=== PATIENT | male | born 1955 | race Caucasian/White ===

== ENCOUNTER 2017-07-02 02:05 | Emergency (ER) | payer BC ==
[2017-07-02] MEDS ORDERED: Sodium Chloride 0.9% 1,000 ML ONE ×2 (02:50→04:36)
--- NOTE | 2017-07-02 05:53 | EDM.PDOC ---
ED HPI GENERAL MEDICAL PROBLEM - General Stated Complaint: ANAL BLEED Time Seen by Provider: 07/02/17 05:48 Source of Information: Reports: Patient, Family (Son) History Limitations: Reports: No Limitations - History of Present Illness INITIAL COMMENTS - FREE TEXT/NARRATIVE: The patient was seen during [facility] downtime. [facility]. The time stamps on the chart affect the current time, not the times that the patient was seen or discharged. The patient states that he underwent a colonoscopy per Dr. Jeremias Marquez, diesel truck mechanic at [facility], yesterday, 07/01/17. Dr. Marquez apparently found a large polyp and took multiple biopsies. Patient was discharged home, feeling well. He states that he developed a painless rectal bleed around 23:00, and has since had about 13 bloody bowel movements. He has become dizzy. His vital signs were initially stable upon arrival to the ED, but shortly after arrival, his blood pressure dropped to 91/51, and he was unable to stand due to dizziness. No prior similar symptoms. No recent illnesses. The patient is not on an anticoagulant. - Related Data Allergies Allergy/AdvReac Type Severity Reaction Status Date / Time No Known Allergies Allergy Verified 01/17/15 10:48 Home Meds: Home Meds Furosemide 40 mg PO DAILY 01/17/15 [History] Hydrochlorothiazide 25 mg PO DAILY 01/17/15 [History] Losartan Potassium 100 mg PO DAILY 01/17/15 [History] Metoprolol Succinate [Toprol XL] 100 mg PO DAILY 01/17/15 [History] Omeprazole 20 mg PO DAILY 01/17/15 [History] Potassium Chloride [Klor-Con M20] 20 meq PO DAILY 01/17/15 [History] Tamsulosin HCl 0.4 mg PO DAILY 01/17/15 [History] metFORMIN [Glucophage] 500 mg PO BID 01/17/15 [History] Past Medical History Cardiovascular History: Reports: Hypertension Gastrointestinal History: Reports: Colon Polyp, GERD, PUD, Other (See Below) ( Duodenal tumor, benign, excised) Endocrine/Metabolic History: Reports: Obesity/BMI 30+, Other (See Below) ( Prediabetes) - Past Surgical History GI Surgical History: Reports: Appendectomy, Other (See Below) (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 ED EXAM, GI/ABD - Physical Exam Exam: See Below Exam Limited By: No Limitations General Appearance: Alert, WD/WN, Mild Distress Eyes: Bilateral: Normal Appearance, EOMI Ears: Normal External Exam, Hearing Grossly Normal Nose: Normal Inspection, No Blood Throat/Mouth: Normal Inspection, Normal Lips, Normal Voice, No Airway Compromise Head: Atraumatic, Normocephalic Neck: Normal Inspection, Full Range of Motion Respiratory/Chest: No Respiratory Distress, Lungs Clear, Normal Breath Sounds, No Accessory Muscle Use Cardiovascular: Normal Peripheral Pulses, Regular Rate, Rhythm, No Gallop, No JVD, No Murmur, No Rub GI/Abdominal Exam: Normal Bowel Sounds, Soft, No Organomegaly, No Distention, No Abnormal Bruit, No Mass, Pelvis Stable, Tender (Mild, in the epigastric region. Nontender elsewhere.), Other (Obese) (Male) Exam: Deferred Rectal (Males) Exam: Heme + Stool Back Exam: Normal Inspection, Full Range of Motion, NT Extremities: Normal Inspection, Normal Range of Motion, No Pedal Edema, Normal Capillary Refill Neurological: Alert, Oriented, Normal Cognition, No Motor/Sensory Deficits Psychiatric: Normal Affect Skin Exam: Warm, Intact, Normal Color, No Rash, Diaphoretic Course - Orders/Labs/Meds Orders: Active Orders 24 hr Category Date Time Status Abdomen 1V Upright [CR] Stat Exams 07/02/17 03:00 Taken - Re-Assessments/Exams Free Text/Narrative Re-Assessment/Exam: 07/02/17 05:55 The patient was given 1 L normal saline bolus, and 2 units of packed red blood cells were ordered typed and crossed. Case discussed with Dr. Velez at 03:20. He felt that the patient would need a colonoscopy, not surgery. He recommended transfer back to Dr. Marquez. [facility] was contacted at 03:25. Case discussed with Dr. Marquez, the patient's Pail Tester, at 03:29. He explained that the patient had an extremely redundant colon, and that he was only able to remove about one half of the cecal polyp. He stated that there was no bleeding at the time, and that the patient was referred to a surgeon for a right hemicolectomy. At this time, the patient would need either interventional radiology for embolization versus surgery, and, since the patient needs a hemicolectomy anyway, he believes that that is the correct choice at this time. Case then discussed with Dr. Aguilar, Surgeon at [facility], at 03:37. He recommended that the patient be transferred to their ED, and that he could see the patient there. We were subsequently notified that due to heavy fog, the helicopter was not flying, and that no fixed wings were available. The patient would have to be transferred by ground. Shortly before transfer, a fixed wing did become available, however, they have a limit of 350 pounds, and the patient weighs 380 pounds, therefore he would have to go by ground. Both units of PRBC's went with the ambulance crew, to be given to the patient en route. Departure - Departure Time of Disposition: 03:40 Disposition: DC/Tfer to Acute Hospital 02 Condition: Fair Clinical Impression: Acute lower GI bleeding, Hypotension due to blood loss - Discharge Information Referrals: PCP,Unknown [Primary Care Provider] - - My Orders Last 24 Hours: My Active Orders 07/02/17 03:00 Abdomen 1V Upright [CR] Stat - Assessment/Plan Last 24 Hours: My Active Orders 07/02/17 03:00 Abdomen 1V Upright [CR] Stat
--- NOTE | 2017-07-02 09:30 | CR ---
Abdomen: Upright views of the abdomen were obtained. Comparison: No prior abdominal x-ray, previous CT abdomen and pelvis exam of 07/06/09. Scoliosis and degenerative change is noted within the spine. Bowel gas pattern appears normal. Calcifications are seen within the pelvis compatible with phleboliths. No free air is seen. Impression: 1. Incidental findings. No free air is seen. Diagnostic code #2
== END 2017-07-02 05:48 ==
LOC: JD.ED 02:05
DX: K92.2 Gastrointestinal hemorrhage, unspecified (principal); I95.89 Other hypotension; I10 Essential (primary) hypertension; K21.9 Gastro-esophageal reflux disease without esophagitis; E66.9 Obesity, unspecified; Z87.891 Personal history of nicotine dependence; Z79.899 Other long term (current) drug therapy
CPT/HCPCS: 36415; 36430; 74018; 80053; 82270; 85025; 85610; 85730; 86850; 86900; 86901; 86922; 96360; 96361; 99285; J7040; P9016

== ENCOUNTER 2019-04-14 15:23 | Inpatient (IN) | payer MEDICARE, OTHER ==
[2019-04-14] MEDS ORDERED: Sodium Chloride 0.9% 10 ML Syringe FLUSH PRN (15:38)
--- NOTE | 2019-04-14 16:07 | EDM.PDOC ---
ED HPI GENERAL MEDICAL PROBLEM - General Chief Complaint: Respiratory Problem Stated Complaint: SOB Time Seen by Provider: 04/14/19 15:30 Source of Information: Reports: Patient, RN Notes Reviewed - History of Present Illness INITIAL COMMENTS - FREE TEXT/NARRATIVE: 64 year old male has been transfered here from the [facility] for evaluation of difficulty breathing, hypoxia, large weight gain. He does have hx of chronic obesity, hypertension. He states his difficulty with shortness of breath first started about 6 weeks ago and has progressively been getting worse. He did smoke up until about 15 years ago. He is thought to have at least mild COPD but that has never been definitively diagnosed. He has had no recent cough fever or chills. He does get more short of breath with even minimal walking or exertion. He was sent to the [place] ED about a week ago. At that time he had full cardiopulmonary workup including CT pulmonary angiogram which did rule out PE. With nebulized treatments and steroids he did better for 4-5 days now over the last 2-3 days symptoms have gotten much worse. He presented to the [facility] with O2 sats at about 85% room air at rest. Without further workup she is transferred here for further evaluation and treatment. On arrival to ED he has no chest pain. He was transferred here with oxygen and an oxygen tank per private vehicle and did okay with the transfer. Her walking from the car out in the parking lot here into the ED his sats dropped to "67% on arrival to his room ". He also states he has had a 20 pound weight gain in the past week and about 50 pound weight gain in the past 3 months or so. He feels like a lot of that'll weight has gone to his abdomen. He states his abdomen is much more distended than it has been in the past. He states he weighed about 350 pounds several months ago last summer. He states he weighed about 380 pounds a week ago and now weighs "over 400 pounds". - Related Data Allergies Allergy/AdvReac Type Severity Reaction Status Date / Time No Known Allergies Allergy Verified 01/17/15 10:48 Home Meds: Home Meds Furosemide 20 mg PO DAILY 01/17/15 [History] Metoprolol Succinate [Toprol XL] 100 mg PO BID 01/17/15 [History] Omeprazole 20 mg PO DAILY 01/17/15 [History] Tamsulosin HCl 0.4 mg PO DAILY 01/17/15 [History] Albuterol [Ventolin HFA] 2 puff INH Q6H 04/14/19 [History] Aspirin [Mariusz Chewable] 81 mg PO DAILY 04/14/19 [History] Escitalopram [Lexapro] 10 mg PO DAILY 04/14/19 [History] Past Medical History Cardiovascular History: Reports: Afib, High Cholesterol, Hypertension Respiratory History: Reports: Bronchitis, Recurrent, COPD, Pneumonia, Recurrent , Sleep Apnea, SOB Gastrointestinal History: Reports: Colon Polyp, GERD, PUD, Other (See Below) Endocrine/Metabolic History: Reports: Obesity/BMI 30+, Other (See Below) Other Dermatologic History: dark spots on legs - Past Surgical History GI Surgical History: Reports: Appendectomy, Colostomy, Other (See Below) Other GI Surgeries/Procedures: colostomy with reversal Social & Family History - Tobacco Use Smoking Status *Q: Former Smoker Used Tobacco, but Quit: Yes Month/Year Tobacco Last Used: 2003 - Caffeine Use Caffeine Use: Reports: Coffee - Recreational Drug Use Recreational Drug Use: No - Living Situation & Occupation Living situation: Reports: , Alone Occupation: Unemployed ED ROS GENERAL - Review of Systems Review Of Systems: See Below Constitutional: Denies: Fever, Chills, Diaphoresis HEENT: Denies: Throat Pain Respiratory: Reports: Shortness of Breath. Denies: Pleuritic Chest Pain, Cough Cardiovascular: Denies: Chest Pain GI/Abdominal: Reports: Distension. Denies: Abdominal Pain, Decreased Appetite, Nausea, Vomiting Musculoskeletal: Denies: Shoulder Pain, Arm Pain, Back Pain Skin: Reports: No Symptoms Neurological: Reports: Dizziness. Denies: Trouble Speaking, Difficulty Walking (No difficulty walking other than getting more short of breath with walking and exertion) ED EXAM, GENERAL - Physical Exam Exam: See Below General Appearance: Alert Eye Exam: Bilateral Eye: PERRL Throat/Mouth: Normal Inspection, Normal Oropharynx Head: Atraumatic, Facial Swelling (Mild) Neck: Supple, Other (No JVD) Respiratory/Chest: Respiratory Distress (Moderate tachypnea) Cardiovascular: Regular Rate, Rhythm GI/Abdominal: Soft, Distended (Very distended), Tender (Very mild diffuse tenderness). No: Guarding Back Exam: No: CVA Tenderness (L), CVA Tenderness (R) Extremities: Pedal Edema (Mild bilateral), Other (Stasis dermatitis skin changes bilateral distal legs, ankles and feet). No: Leg Pain, Redness Neurological: Alert, Oriented, No Motor/Sensory Deficits Skin Exam: Warm, Dry EKG INTERPRETATION EKG Date: 04/14/19 Rhythm: NSR [place]: Normal P-Wave: Present QRS: Normal ST-T: Normal QT: Normal Course - Vital Signs Last Recorded V/S: Last Vital Signs Temp 97.7 F 04/14/19 15:28 Pulse 73 04/14/19 15:28 Resp 25 H 04/14/19 15:28 BP 167/100 H 04/14/19 15:28 Pulse Ox 96 04/14/19 15:39 - Orders/Labs/Meds Orders: Active Orders 24 hr Category Date Time Status EKG 12 Lead [EKG Documentation Completion] [RC] STAT Care 04/14/19 15:39 Active Oxygen Therapy [RC] ASDIRECTED Care 04/14/19 15:39 Active Peripheral IV Care [RC] . DIRECTED Care 04/14/19 15:39 Active Chest 1V Frontal [CR] Stat Exams 04/14/19 15:39 Taken Sodium Chloride 0.9% [Saline Flush] Med 04/14/19 15:38 Active 10 ml FLUSH ASDIRECTED PRN Peripheral IV Insertion Adult [OM.PC] Stat Oth 04/14/19 15:39 Ordered Medication Orders Sodium Chloride (Saline Flush) 10 ml FLUSH ASDIRECTED PRN PRN Reason: Keep Vein Open Last Admin: 04/14/19 15:42 Dose: 10 ml Labs: Laboratory Tests 04/14/19 04/14/19 04/14/19 Range/Units 15:35 15:35 15:35 WBC 9.53 H (4.23-9.07) K/mm3 RBC 5.40 (4.63-6.08) M/mm3 Hgb 16.1 (13.7-17.5) gm/dl Hct 52.5 H (40.1-51.0) % MCV 97.2 H D (79.0-92.2) fl MCH 29.8 (25.7-32.2) pg MCHC 30.7 L (32.2-35.5) g/dl RDW Std Deviation 54.8 H (35.1-43.9) fL Plt Count 194 (163-337) K/mm3 MPV 10.0 (9.4-12.3) fl Neut % (Auto) 67.8 (34.0-67.9) % Lymph % (Auto) 18.3 L (21.8-53.1) % [place] % (Auto) 13.0 H (5.3-12.2) % Eos % (Auto) 0.6 L (0.8-7.0) Baso % (Auto) 0.1 (0.1-1.2) % Neut # (Auto) 6.46 H (1.78-5.38) K/mm3 Lymph # (Auto) 1.74 (1.32-3.57) K/mm3 [place] # (Auto) 1.24 H (0.30-0.82) K/mm3 Eos # (Auto) 0.06 (0.04-0.54) K/mm3 Baso # (Auto) 0.01 (0.01-0.08) K/mm3 PT (9.7-12.0) SECONDS INR Sodium 145 (136-145) mEq/L Potassium 4.4 (3.5-5.1) mEq/L Chloride 107 (98-107) mEq/L Carbon Dioxide 35 H (21-32) mEq/L Anion Gap 7.4 (5-15) BUN 35 H (7-18) mg/dL Creatinine 1.6 H (0.7-1.3) mg/dL Est Cr Clr Drug Dosing 50.52 mL/min Estimated GFR (MDRD) 44 (>60) mL/min BUN/Creatinine Ratio 21.9 H (14-18) Glucose 95 (80-115) mg/dL Calcium 9.1 (8.5-10.1) mg/dL Total Bilirubin 0.7 (0.2-1.0) mg/dL AST 26 (15-37) U/L ALT 58 (16-63) U/L Alkaline Phosphatase 67 (46-116) U/L Troponin I 0.046 (0.00-0.056) ng/mL NT-Pro-B Natriuret Pep 1389 H (0-125) pg/mL Total Protein 7.1 (6.4-8.2) g/dl Albumin 3.5 (3.4-5.0) g/dl Globulin 3.6 gm/dL Albumin/Globulin Ratio 1.0 (1-2) 04/14/19 Range/Units 15:35 WBC (4.23-9.07) K/mm3 RBC (4.63-6.08) M/mm3 Hgb (13.7-17.5) gm/dl Hct (40.1-51.0) % MCV (79.0-92.2) fl MCH (25.7-32.2) pg MCHC (32.2-35.5) g/dl RDW Std Deviation (35.1-43.9) fL Plt Count (163-337) K/mm3 MPV (9.4-12.3) fl Neut % (Auto) (34.0-67.9) % Lymph % (Auto) (21.8-53.1) % [place] % (Auto) (5.3-12.2) % Eos % (Auto) (0.8-7.0) Baso % (Auto) (0.1-1.2) % Neut # (Auto) (1.78-5.38) K/mm3 Lymph # (Auto) (1.32-3.57) K/mm3 [place] # (Auto) (0.30-0.82) K/mm3 Eos # (Auto) (0.04-0.54) K/mm3 Baso # (Auto) (0.01-0.08) K/mm3 PT 11.7 D (9.7-12.0) SECONDS INR 1.08 Sodium (136-145) mEq/L Potassium (3.5-5.1) mEq/L Chloride (98-107) mEq/L Carbon Dioxide (21-32) mEq/L Anion Gap (5-15) BUN (7-18) mg/dL Creatinine (0.7-1.3) mg/dL Est Cr Clr Drug Dosing mL/min Estimated GFR (MDRD) (>60) mL/min BUN/Creatinine Ratio (14-18) Glucose (80-115) mg/dL Calcium (8.5-10.1) mg/dL Total Bilirubin (0.2-1.0) mg/dL AST (15-37) U/L ALT (16-63) U/L Alkaline Phosphatase (46-116) U/L Troponin I (0.00-0.056) ng/mL NT-Pro-B Natriuret Pep (0-125) pg/mL Total Protein (6.4-8.2) g/dl Albumin (3.4-5.0) g/dl Globulin gm/dL Albumin/Globulin Ratio (1-2) Meds: Medications Generic Name Dose Route Start Last Admin Trade Name Freq PRN Reason Stop Dose Admin Sodium Chloride 10 ml 04/14/19 15:38 04/14/19 15:42 Saline Flush FLUSH 10 ml ASDIRECTED PRN Administration Keep Vein Open Discontinued Medications Generic Name Dose Route Start Last Admin Trade Name Freq PRN Reason Stop Dose Admin Furosemide 60 mg 04/14/19 16:28 04/14/19 16:40 Lasix IVPUSH 04/14/19 16:29 60 mg NOW ONE Administration - Re-Assessments/Exams Free Text/Narrative Re-Assessment/Exam: 04/14/19 17:03 Chest x-ray shows cardiomegaly, pulmonary congestion, BNP came back at around 1400. As noted O2 sats dropped to 67% just walking from the parking lot to his room here in the ED. Sats did come up immediately with oxygen nasal cannula. Currently running in the mid 90s at 4 L nasal cannula we will try drop that down to 3 or 2. No semi-60 mg IV has been given. Will be admitted for further evaluation and treatment. Note he did just have an echocardiogram done at [facility] yesterday, results not yet available. Departure - Departure Time of Disposition: 17:05 Disposition: Home, Self-Care 01 Condition: Poor Clinical Impression: Renal insufficiency Congestive heart failure Qualifiers: Heart failure chronicity: acute on chronic Obesity Qualifiers: Obesity type: unspecified obesity type Serious obesity comorbidity presence: with serious comorbidity Body mass index: BMI 50.0-59.9 - Discharge Information Referrals: Sofia Otto PA-C [Primary Care Provider] - Forms: ED Department Discharge ED Communication - Discussed Case With (1) Discussed Case With (1): Admitting Provider (Dr Schrader, decision to admit at about 16:45) - My Orders Last 24 Hours: My Active Orders 04/14/19 15:38 Sodium Chloride 0.9% [Saline Flush] 10 ml FLUSH ASDIRECTED PRN 04/14/19 15:39 EKG 12 Lead [EKG Documentation Completion] [RC] STAT Oxygen Therapy [RC] ASDIRECTED Peripheral IV Care [RC] . DIRECTED Chest 1V Frontal [CR] Stat Peripheral IV Insertion Adult [OM.PC] Stat - Assessment/Plan Last 24 Hours: My Active Orders 04/14/19 15:38 Sodium Chloride 0.9% [Saline Flush] 10 ml FLUSH ASDIRECTED PRN 04/14/19 15:39 EKG 12 Lead [EKG Documentation Completion] [RC] STAT Oxygen Therapy [RC] ASDIRECTED Peripheral IV Care [RC] . DIRECTED Chest 1V Frontal [CR] Stat Peripheral IV Insertion Adult [OM.PC] Stat
[2019-04-14] MEDS ORDERED: Furosemide 40 MG/4 ML VIAL IVPUSH ONE (16:28)
--- NOTE | 2019-04-14 20:30 | CR ---
Chest: Frontal view of the chest was obtained. Comparison: Previous chest x-ray of 03/02/19. Heart size is stable. Questionable increased markings are noted within the left mid lung. Lungs otherwise are clear. Bony structures are unremarkable. Impression: 1. Left-sided increased lung markings. These appear fairly stable from previous exam. 2. Nothing acute is otherwise seen. Diagnostic code #2
--- NOTE | 2019-04-14 21:25 | PCM.HP.2 ---
H&P History of Present Illness - General Date of Service: 04/14/19 Admit Problem/Dx: Admission Diagnosis/Problem Admission Diagnosis/Problem CHF, Congestive heart failure - History of Present Illness Initial Comments - Free Text/Narative: 54-year-old male who presented from [facility] with increasing shortness of breath and hypoxia. Patient states over the last 6 weeks he has had worsening shortness of breath. Patient presented to [facility] at that time and was started on nebulizers. Patient had some mild improvement but then was sent to [facility] emergency room on and they did relatively full evaluation which included a CT pulmonary angiogram to rule out PE. An echocardiogram was performed yesterday. Patient denies any orthopnea but does have PND. Today patient was at a follow-up appointment and his provider referred him to the emergency room because of worsening shortness of breath and weight gain. Patient states he has gained approximately 20 pounds over the last 6 weeks. He feels like it is mostly gone into his abdomen, but his provider felt there was increased swelling in his legs. Patient stopped smoking 15 years ago. He appears to have mild COPD. He's had no cough, chills, or fever. Patient has only a few step dyspnea on exertion. When the patient arrived to the emergency room his oxygen saturations were 67% after walking to his room. In the emergency room his initial blood pressure was 167 or 100 with respiratory rate of 25. EKG showed normal sinus rhythm with essentially normal EKG. It is not available for me to see at this time. Chest x-ray showed cardiomegaly with pulmonary vascular congestion. Patient was then given Lasix 60 mg IV with good results. He currently states he has much less shortness of breath. Emergency room laboratory studies: WBC 9.53, hemoglobin 16.1, platelets 194, sodium 145, chloride 107, potassium 4.4, carbon dioxide 35, BUN 35, creatinine 1.6, proBNP 1389, troponin 0.047. - Related Data Allergies/Adverse Reactions: Allergies Allergy/AdvReac Type Severity Reaction Status Date / Time No Known Allergies Allergy Verified 04/14/19 20:51 Home Medications: Home Meds Furosemide 20 mg PO DAILY 01/17/15 [History] Omeprazole 20 mg PO DAILY 01/17/15 [History] Tamsulosin HCl 0.4 mg PO DAILY 01/17/15 [History] Aspirin [Mariusz Chewable] 81 mg PO DAILY 04/14/19 [History] Escitalopram [Lexapro] 10 mg PO DAILY 04/14/19 [History] Past Medical History HEENT History: Reports: Other (See Below) Other HEENT History: wears glasses, has upper dentures Cardiovascular History: Reports: High Cholesterol, Hypertension Respiratory History: Reports: COPD, Sleep Apnea, Other (See Below) Other Respiratory History: wears CPAP Gastrointestinal History: Reports: Colon Polyp, GERD Endocrine/Metabolic History: Reports: Obesity/BMI 30+ Other Dermatologic History: dark spots on legs - Past Surgical History HEENT Surgical History: Reports: Tonsillectomy Cardiovascular Surgical History: Reports: None Respiratory Surgical History: Reports: None GI Surgical History: Reports: Appendectomy, Colonoscopy, Colostomy, Other (See Below) Other GI Surgeries/Procedures: colonoscopy in 2018 where bowel was perforated, ended up with colostomy which has since been reversed. Endocrine Surgical History: Reports: None Social & Family History - Family History Family Medical History: Noncontributory - Tobacco Use Smoking Status *Q: Former Smoker Years of Tobacco use: 30 Used Tobacco, but Quit: Yes Month/Year Tobacco Last Used: 2003 - Caffeine Use Caffeine Use: Reports: None - Alcohol Use Days Per Week of Alcohol Use: 7 Number of Drinks Per Day: 3 Total Drinks Per Week: 21 - Recreational Drug Use Recreational Drug Use: No - Living Situation & Occupation Living situation: Reports: , Alone Occupation: Unemployed H&P Review of Systems - Review of Systems: Review Of Systems: ROS reveals no pertinent complaints other than HPI. Exam - Exam Exam: See Below - Vital Signs Vital Signs: Last Vital Signs Temp 98.6 F 04/14/19 18:18 Pulse 75 04/14/19 18:24 Resp 22 H 04/14/19 18:18 BP 169/75 H 04/14/19 18:24 Pulse Ox 92 L 04/14/19 18:24 Weight: 398 lb 14.4 oz - Exam Quality Assessment: Supplemental Oxygen General: Alert, Oriented, 4 HEENT: Conjunctiva Clear, EACs Clear, EOMI, Hearing Intact, Mucosa Moist & Success , Nares Patent, Normal Nasal Septum, Posterior Pharynx Clear Neck: Supple, Trachea Midline, 2 Lungs: Normal Respiratory Effort, Rales (mild bibasilar) Cardiovascular: Regular Rate, Regular Rhythm GI/Abdominal Exam: Normal Bowel Sounds, Soft, Non-Tender, No Organomegaly, No Distention, No Abnormal Bruit, No Mass Extremities: Normal Inspection, Normal Range of Motion, Non-Tender, Normal Capillary Refill, Pedal Edema (2+) Skin: Warm, Dry, Intact, Other (Stasis dermatitis) Neurological: Cranial Nerves Intact Neuro Extensive - Mental Status: Alert, Oriented x3, Normal Mood/Affect, Normal Cognition Neuro Extensive - Motor, Sensory, Reflexes: CN II-XII Intact Psychiatric: Alert, Normal Affect, Normal Mood - Patient Data Lab Results Last 24 hrs: Laboratory Results - last 24 hr 04/14/19 04/14/19 04/14/19 Range/Units 15:35 15:35 15:35 WBC 9.53 H (4.23-9.07) K/mm3 RBC 5.40 (4.63-6.08) M/mm3 Hgb 16.1 (13.7-17.5) gm/dl Hct 52.5 H (40.1-51.0) % MCV 97.2 H D (79.0-92.2) fl MCH 29.8 (25.7-32.2) pg MCHC 30.7 L (32.2-35.5) g/dl RDW Std Deviation 54.8 H (35.1-43.9) fL Plt Count 194 (163-337) K/mm3 MPV 10.0 (9.4-12.3) fl Neut % (Auto) 67.8 (34.0-67.9) % Lymph % (Auto) 18.3 L (21.8-53.1) % [place] % (Auto) 13.0 H (5.3-12.2) % Eos % (Auto) 0.6 L (0.8-7.0) Baso % (Auto) 0.1 (0.1-1.2) % Neut # (Auto) 6.46 H (1.78-5.38) K/mm3 Lymph # (Auto) 1.74 (1.32-3.57) K/mm3 [place] # (Auto) 1.24 H (0.30-0.82) K/mm3 Eos # (Auto) 0.06 (0.04-0.54) K/mm3 Baso # (Auto) 0.01 (0.01-0.08) K/mm3 PT (9.7-12.0) SECONDS INR Sodium 145 (136-145) mEq/L Potassium 4.4 (3.5-5.1) mEq/L Chloride 107 (98-107) mEq/L Carbon Dioxide 35 H (21-32) mEq/L Anion Gap 7.4 (5-15) BUN 35 H (7-18) mg/dL Creatinine 1.6 H (0.7-1.3) mg/dL Est Cr Clr Drug Dosing 50.52 mL/min Estimated GFR (MDRD) 44 (>60) mL/min BUN/Creatinine Ratio 21.9 H (14-18) Glucose 95 (80-115) mg/dL Calcium 9.1 (8.5-10.1) mg/dL Total Bilirubin 0.7 (0.2-1.0) mg/dL AST 26 (15-37) U/L ALT 58 (16-63) U/L Alkaline Phosphatase 67 (46-116) U/L Troponin I 0.046 (0.00-0.056) ng/mL NT-Pro-B Natriuret Pep 1389 H (0-125) pg/mL Total Protein 7.1 (6.4-8.2) g/dl Albumin 3.5 (3.4-5.0) g/dl Globulin 3.6 gm/dL Albumin/Globulin Ratio 1.0 (1-2) 04/14/19 Range/Units 15:35 WBC (4.23-9.07) K/mm3 RBC (4.63-6.08) M/mm3 Hgb (13.7-17.5) gm/dl Hct (40.1-51.0) % MCV (79.0-92.2) fl MCH (25.7-32.2) pg MCHC (32.2-35.5) g/dl RDW Std Deviation (35.1-43.9) fL Plt Count (163-337) K/mm3 MPV (9.4-12.3) fl Neut % (Auto) (34.0-67.9) % Lymph % (Auto) (21.8-53.1) % [place] % (Auto) (5.3-12.2) % Eos % (Auto) (0.8-7.0) Baso % (Auto) (0.1-1.2) % Neut # (Auto) (1.78-5.38) K/mm3 Lymph # (Auto) (1.32-3.57) K/mm3 [place] # (Auto) (0.30-0.82) K/mm3 Eos # (Auto) (0.04-0.54) K/mm3 Baso # (Auto) (0.01-0.08) K/mm3 PT 11.7 D (9.7-12.0) SECONDS INR 1.08 Sodium (136-145) mEq/L Potassium (3.5-5.1) mEq/L Chloride (98-107) mEq/L Carbon Dioxide (21-32) mEq/L Anion Gap (5-15) BUN (7-18) mg/dL Creatinine (0.7-1.3) mg/dL Est Cr Clr Drug Dosing mL/min Estimated GFR (MDRD) (>60) mL/min BUN/Creatinine Ratio (14-18) Glucose (80-115) mg/dL Calcium (8.5-10.1) mg/dL Total Bilirubin (0.2-1.0) mg/dL AST (15-37) U/L ALT (16-63) U/L Alkaline Phosphatase (46-116) U/L Troponin I (0.00-0.056) ng/mL NT-Pro-B Natriuret Pep (0-125) pg/mL Total Protein (6.4-8.2) g/dl Albumin (3.4-5.0) g/dl Globulin gm/dL Albumin/Globulin Ratio (1-2) Result Diagrams: 04/14/19 15:35 04/14/19 15:35 Problem List Initiated/Reviewed/Updated: Yes Orders Last 24hrs: Active Orders 24 hr Category Date Time Status Patient Status [ADT] Routine ADT 04/14/19 17:15 Active CPAP Adult [RT BiPAP/CPAP] [RC] ASDIRECTED Care 04/14/19 20:06 Active Influenza Vaccine Charge [RC] .DISCHARGE Care 04/14/19 20:38 Active Intake and Output Strict [RC] 04,16 Care 04/14/19 18:32 Active Oxygen Therapy [RC] ASDIRECTED Care 04/14/19 15:39 Active Peripheral IV Care [RC] Q2HR Care 04/14/19 15:39 Active Heart Healthy Diet [DIET] Diet 04/15/19 Breakfast Active Echo Comp wo Cont [US] Routine Exams 04/15/19 Stop Req CBC WITH AUTO DIFF [HEME] AM Lab 04/15/19 05:11 Ordered CBC WITH AUTO DIFF [HEME] AM Lab 04/16/19 05:11 Ordered CBC WITH AUTO DIFF [HEME] AM Lab 04/17/19 05:11 Ordered CBC WITH AUTO DIFF [HEME] AM Lab 04/18/19 05:11 Ordered CMP [COMPREHENSIVE METABOLIC PN,CMP] [CHEM] AM Lab 04/15/19 05:11 Ordered CMP [COMPREHENSIVE METABOLIC PN,CMP] [CHEM] AM Lab 04/16/19 05:11 Ordered CMP [COMPREHENSIVE METABOLIC PN,CMP] [CHEM] AM Lab 04/17/19 05:11 Ordered CMP [COMPREHENSIVE METABOLIC PN,CMP] [CHEM] AM Lab 04/18/19 05:11 Ordered MAGNESIUM [CHEM] AM Lab 04/15/19 05:11 Ordered MAGNESIUM [CHEM] AM Lab 04/16/19 05:11 Ordered MAGNESIUM [CHEM] AM Lab 04/17/19 05:11 Ordered MAGNESIUM [CHEM] AM Lab 04/18/19 05:11 Ordered Aspirin Med 04/15/19 09:00 Ordered 81 mg PO DAILY Escitalopram Med 04/15/19 09:00 Ordered 10 mg PO DAILY Isosorbide Dinitrate [Isordil] Med 04/14/19 21:15 Once 10 mg PO ONETIME ONE Isosorbide Dinitrate [Isordil] Med 04/15/19 09:00 Ordered 10 mg PO TID Pantoprazole [ProTONIX] Med 04/15/19 06:00 Ordered 40 mg PO ACBREAKFAST Sodium Chloride 0.9% [Saline Flush] Med 04/14/19 15:38 Active 10 ml FLUSH ASDIRECTED PRN Tamsulosin [Flomax] Med 04/15/19 09:00 Ordered 0.4 mg PO DAILY hydrALAZINE [Apresoline] Med 04/14/19 21:15 Ordered 25 mg PO Q8H Peripheral IV Insertion Adult [OM.PC] Stat Oth 04/14/19 15:39 Ordered Code Status [Resuscitation Status] Routine Resus Stat 04/14/19 20:07 Ordered Medication Orders Aspirin (Halfprin) 81 mg PO DAILY [facility]A Citalopram Hydrobromide (Celexa) 20 mg PO DAILY [facility] Hydralazine HCl (Apresoline) 25 mg PO Q8H [facility] Isosorbide Dinitrate (Isordil) 10 mg PO TID JAYA Isosorbide Dinitrate (Isordil) 10 mg PO ONETIME ONE Stop: 04/14/19 21:16 Pantoprazole Sodium (Protonix) 40 mg PO ACBREAKFAST [facility] Sodium Chloride (Saline Flush) 10 ml FLUSH ASDIRECTED PRN PRN Reason: Keep Vein Open Last Admin: 04/14/19 15:42 Dose: 10 ml Tamsulosin HCl (Flomax) 0.4 mg PO DAILY [facility] Assessment/Plan Comment:: Assessment * New onset CHF * Likely secondary to chronic hypertension * Hypoxemia * On 6 L nasal cannula sPO2 approximately 95% * Chronic renal insufficiency * Old records Demonstrate estimated GFR of 51 in June and February of this year * Morbid obesity * BMI 52 * Hypertension * history of metoprolol tartrate 25 mg twice a day, but current med list does not have him taking it. * No current IZZY inhibitor or ARB * Sleep apnea * On CPAP at home, but not sure of pressure but thinks it's 10 * Stasis dermatitis * Confirms that he has chronic lower extremity edema * BPH * On tamsulosin Plan * Admit to medical floor on telemetry * FiO2 to keep SPO2 greater than 92% * Lasix 60 mg given in the emergency room repeat in the morning * Hydralazine 25 mg every 8 hours and isosorbide dinitrate 10 mg every 8 hours first dose tonight * We will not start an IZZY inhibitor or ARB secondary to renal insufficiency at this time but may benefit from it in the future * hold beta iliana * consider stress test as outpatient * Echocardiogram done at [place], [place]. We will request results * Monitor CBC, CMP, and magnesium * VTE prophylaxis with Lovenox. He will require 40 mg twice a day secondary to his morbid obesity * CODE STATUS: Full code * Length of stay 3-4 days - Mortality Measure Prognosis:: Poor
[2019-04-14] MEDS: hydrALAZINE 25 MG Tab PO SCH (21:38)
[2019-04-14] MEDS ORDERED: Isosorbide Dinitrate 10 MG Tab PO ONE (22:00)
[2019-04-15] MEDS ORDERED: Acetaminophen 325 MG/10.15 ML ML PO PRN (05:01)
[2019-04-15] MEDS ORDERED: Acetaminophen 325 MG Tab PO PRN (05:12)
[2019-04-15] MEDS: Pantoprazole 40 MG Tab.CR PO SCH (05:23)
[2019-04-15] MEDS: hydrALAZINE 25 MG Tab PO SCH (05:33)
[2019-04-15] MEDS ORDERED: Isosorbide Dinitrate 10 MG Tab PO SCH (06:00)
[2019-04-15] MEDS ORDERED: Furosemide 40 MG/4 ML VIAL IVPUSH SCH (08:00)
[2019-04-15] MEDS: Enoxaparin 40 MG/0.4 ML Syringe SUBCUT SCH ×2 (08:12→20:48)
[2019-04-15] MEDS: Tamsulosin 0.4 MG Cap.ER PO SCH (08:12)
[2019-04-15] MEDS: Aspirin 81 MG Tab.EC PO SCH (08:13)
[2019-04-15] MEDS: Citalopram 20 MG Tab PO SCH (08:13)
[2019-04-15] MEDS ORDERED: Calcium Carbonate 500 MG Tab.Chew PO PRN (10:28)
[2019-04-15] MEDS ORDERED: Spironolactone 25 MG Tab PO ONE (14:13)
[2019-04-15] MEDS ORDERED: Furosemide 40 MG/4 ML VIAL IVPUSH ONE (14:13)
--- NOTE | 2019-04-15 15:44 | US ---
Limited abdominal ultrasound: Multiple real-time images of the four quadrants of the abdomen were obtained. No ascites is seen. Impression: 1. No ascites. Diagnostic code #1
--- NOTE | 2019-04-15 17:34 | PCM.PN ---
- General Info Date of Service: 04/15/19 Admission Dx/Problem (Free Text): Admission Diagnosis/Problem Admission Diagnosis/Problem CHF, Congestive heart failure Subjective Update: Espinoza is feeling much better this morning. Breathing is easier and FiO2 is decreasing. Received his Echo from [facility] - Review of Systems General: Reports: No Symptoms HEENT: Reports: No Symptoms Pulmonary: Reports: Shortness of Breath Cardiovascular: Reports: No Symptoms Gastrointestinal: Reports: No Symptoms - Patient Data Vitals - Most Recent: Last Vital Signs Temp 98.4 F 04/15/19 11:41 Pulse 74 04/15/19 11:41 Resp 16 04/15/19 11:41 BP 125/64 04/15/19 11:41 Pulse Ox 93 L 04/15/19 11:41 Weight - Most Recent: 389 lb 14.4 oz I&O - Last 24 Hours: Intake & Output 04/15/19 04/15/19 04/15/19 06:59 14:59 22:59 Intake Total 1400 300 300 Output Total 4200 Balance -2800 300 300 Lab Results Last 24 Hours: Laboratory Results - last 24 hr 04/15/19 04/15/19 04/15/19 Range/Units 04:59 04:59 10:58 WBC 9.09 H (4.23-9.07) K/mm3 RBC 5.23 (4.63-6.08) M/mm3 Hgb 15.7 (13.7-17.5) gm/dl Hct 51.4 H (40.1-51.0) % MCV 98.3 H (79.0-92.2) fl MCH 30.0 (25.7-32.2) pg MCHC 30.5 L (32.2-35.5) g/dl RDW Std Deviation 55.6 H (35.1-43.9) fL Plt Count 166 (163-337) K/mm3 MPV 10.8 (9.4-12.3) fl Neut % (Auto) 65.3 (34.0-67.9) % Lymph % (Auto) 19.1 L (21.8-53.1) % [place] % (Auto) 13.8 H (5.3-12.2) % Eos % (Auto) 1.4 (0.8-7.0) Baso % (Auto) 0.3 (0.1-1.2) % Neut # (Auto) 5.93 H (1.78-5.38) K/mm3 Lymph # (Auto) 1.74 (1.32-3.57) K/mm3 [place] # (Auto) 1.25 H (0.30-0.82) K/mm3 Eos # (Auto) 0.13 (0.04-0.54) K/mm3 Baso # (Auto) 0.03 (0.01-0.08) K/mm3 Puncture Site Rt radial ABG pH 7.40 (7.35-7.45) ABG pCO2 59.1 H (35.0-45.0) mmHg ABG pO2 63.0 L (80.0-100.0) mmHg ABG HCO3 35.5 H (22.0-26.0) meq/L ABG O2 Saturation 89.2 L (96.0-97.0) % ABG Base Excess 8.1 H (-2-2.0) A-a Gradient 120 mmHg O2 Delivery Device Nasal cannula Oxygen Flow Rate 4.0 FiO2 36.00 (21.00-100.00) % Sodium 143 (136-145) mEq/L Potassium 4.2 (3.5-5.1) mEq/L Chloride 103 (98-107) mEq/L Carbon Dioxide 36 H (21-32) mEq/L Anion Gap 8.2 (5-15) BUN 32 H (7-18) mg/dL Creatinine 1.6 H (0.7-1.3) mg/dL Est Cr Clr Drug Dosing 52.02 mL/min Estimated GFR (MDRD) 44 (>60) mL/min BUN/Creatinine Ratio 20.0 H (14-18) Glucose 87 (80-115) mg/dL Calcium 9.2 (8.5-10.1) mg/dL Magnesium 2.2 (1.8-2.4) mg/dl Total Bilirubin 1.2 H (0.2-1.0) mg/dL AST 31 (15-37) U/L ALT 52 (16-63) U/L Alkaline Phosphatase 61 (46-116) U/L Total Protein 6.7 (6.4-8.2) g/dl Albumin 3.3 L (3.4-5.0) g/dl Globulin 3.4 gm/dL Albumin/Globulin Ratio 1.0 (1-2) Med Orders - Current: Current Medications Acetaminophen (Tylenol) 650 mg PO Q4H PRN PRN Reason: Pain/Fever Last Admin: 04/15/19 05:22 Dose: 650 mg Aspirin (Halfprin) 81 mg PO DAILY [facility] Last Admin: 04/15/19 08:13 Dose: 81 mg Calcium Carbonate/Glycine (Tums) 1,000 mg PO Q2H PRN PRN Reason: Indigestion Last Admin: 04/15/19 10:35 Dose: 1,000 mg Citalopram Hydrobromide (Celexa) 20 mg PO DAILY [facility] Last Admin: 04/15/19 08:13 Dose: 20 mg Enoxaparin Sodium (Lovenox) 40 mg SUBCUT BID [facility] Last Admin: 04/15/19 08:12 Dose: 40 mg Furosemide (Lasix) 40 mg IVPUSH DAILY [facility] Pantoprazole Sodium (Protonix) 40 mg PO ACBREAKFAST [facility] Last Admin: 04/15/19 05:23 Dose: 40 mg Sodium Chloride (Saline Flush) 10 ml FLUSH ASDIRECTED PRN PRN Reason: Keep Vein Open Last Admin: 04/14/19 15:42 Dose: 10 ml Spironolactone (Aldactone) 12.5 mg PO DAILY [facility] Tamsulosin HCl (Flomax) 0.4 mg PO DAILY [facility] Last Admin: 04/15/19 08:12 Dose: 0.4 mg Discontinued Medications Furosemide (Lasix) 60 mg IVPUSH NOW ONE Stop: 04/14/19 16:29 Last Admin: 04/14/19 16:40 Dose: 60 mg Furosemide (Lasix) 60 mg IVPUSH QAM [facility] Last Admin: 04/15/19 08:13 Dose: 60 mg Furosemide (Lasix) 40 mg IVPUSH NOW ONE Stop: 04/15/19 14:14 Last Admin: 04/15/19 14:34 Dose: 40 mg Hydralazine HCl (Apresoline) 25 mg PO Q8H [facility] Last Admin: 04/15/19 05:33 Dose: 25 mg Influenza Virus Vaccine (Pharmacy To Dose - Influenza Vaccine) 1 each IM ONETIME ONE Stop: 04/14/19 20:39 Influenza Virus Vaccine (Fluzone High-Dose Syringe) 180 mcg IM .ONCE ONE Stop: 04/14/19 21:01 Isosorbide Dinitrate (Isordil) 10 mg PO Q8H [facility] Last Admin: 04/15/19 05:32 Dose: 10 mg Isosorbide Dinitrate (Isordil) 10 mg PO ONETIME ONE Stop: 04/14/19 22:01 Last Admin: 04/14/19 21:38 Dose: 10 mg Spironolactone (Aldactone) 12.5 mg PO ONETIME ONE Stop: 04/15/19 14:14 Last Admin: 04/15/19 14:34 Dose: 12.5 mg - Exam Quality Assessment: Supplemental Oxygen General: Alert, Oriented HEENT: Pupils Equal Neck: Supple Lungs: Clear to Auscultation, Normal Respiratory Effort Cardiovascular: Regular Rate, Regular Rhythm GI/Abdominal Exam: Normal Bowel Sounds, Soft, Non-Tender, No Organomegaly, No Distention, No Abnormal Bruit, No Mass, Pelvis Stable - Problem List Review Problem List Initiated/Reviewed/Updated: Yes - My Orders Last 24 Hours: My Active Orders 04/14/19 18:32 Intake and Output Strict [RC] 04,16 04/14/19 20:06 CPAP Adult [RT BiPAP/CPAP] [RC] ASDIRECTED 04/14/19 20:07 Code Status [Resuscitation Status] Routine 04/14/19 20:38 Influenza Vaccine Charge [RC] .DISCHARGE 04/15/19 05:12 Acetaminophen [Tylenol] 650 mg PO Q4H PRN 04/15/19 06:00 Pantoprazole [ProTONIX] 40 mg PO ACBREAKFAST 04/15/19 07:50 Up ad Milena [RC] ASDIRECTED 04/15/19 08:00 Communication Order [RC] ROUTINE 04/15/19 09:00 Aspirin [Halfprin] 81 mg PO DAILY Citalopram [Celexa] 20 mg PO DAILY Enoxaparin [Lovenox] 40 mg SUBCUT BID Tamsulosin [Flomax] 0.4 mg PO DAILY 04/15/19 10:28 Calcium Carbonate [Tums] 1,000 mg PO Q2H PRN 04/15/19 Breakfast Fluid Restriction [DIET] Heart Healthy Diet [DIET] 04/16/19 05:11 CBC WITH AUTO DIFF [HEME] AM CMP [COMPREHENSIVE METABOLIC PN,CMP] [CHEM] AM MAGNESIUM [CHEM] AM 04/16/19 09:00 Furosemide [Lasix] 40 mg IVPUSH DAILY Spironolactone [Aldactone] 12.5 mg PO DAILY 04/17/19 05:11 CBC WITH AUTO DIFF [HEME] AM CMP [COMPREHENSIVE METABOLIC PN,CMP] [CHEM] AM MAGNESIUM [CHEM] AM 04/18/19 05:11 CBC WITH AUTO DIFF [HEME] AM CMP [COMPREHENSIVE METABOLIC PN,CMP] [CHEM] AM MAGNESIUM [CHEM] AM - Plan Plan:: Assessment * New onset CHF (HFpEF) * likely secondary to obesity, hypertension, and sleep-disordered breathing. * good urine output and 8 pound weight loss. * echocardiogram from 04/13/2019: technically suboptimal study. * left ventricle was not well visualized. * The left ventricular ejection fraction is 55-59%, with normal systolic function. This is an estimate. * Left ventricular disc diastolic filling is grade 2 diastolic dysfunction by spectral Doppler. * Aortic valve - no aortic valve stenosis by spectral Doppler. * There is an aortic aneurysm located in the ascending aorta kelvin * the IVC is normal in size with greater than 50% respirophasic collapse suggesting an RA pressure of 0-5 mmHg * ascending aortic aneurysm measuring 4.1 cm * appointment with cardiology to be scheduled * Hypoxemia * On 4 L nasal cannula sPO2 approximately 95% * Chronic renal insufficiency * Old records demonstrate estimated GFR of 51 in June and February of this year * Morbid obesity * BMI 52 * Hypertension * history of metoprolol tartrate 25 mg twice a day, but current med list does not have him taking it. * No current IZZY inhibitor or ARB * Sleep apnea * On CPAP at home, but not sure of pressure but thinks it's 10 * Stasis dermatitis * Confirms that he has chronic lower extremity edema * BPH * On tamsulosin Plan * Admit to medical floor on telemetry * FiO2 to keep SPO2 greater than 92% * Lasix 60 mg IV given this morning * Lasix 40 mg IV this afternoon * Stop Hydralazine 25 mg every 8 hours and isosorbide dinitrate 10 mg every 8 hours secondary to preserved ejection fraction her failure. * We will not start an IZZY inhibitor or ARB secondary to renal insufficiency at this time but may benefit from it in the future * start spironolactone 12.5 mg by mouth. * consider stress test as outpatient * Monitor CBC, CMP, and magnesium * VTE prophylaxis with Lovenox. He will require 40 mg twice a day secondary to his morbid obesity * CODE STATUS: Full code * Length of stay 3-4 days
[2019-04-15] MEDS ORDERED: Cyclobenzaprine 10 MG Tab PO PRN (18:22)
[2019-04-16] MEDS: Pantoprazole 40 MG Tab.CR PO SCH (06:31)
[2019-04-16] MEDS: Spironolactone 25 MG Tab PO SCH (09:20)
[2019-04-16] MEDS: Tamsulosin 0.4 MG Cap.ER PO SCH (09:20)
[2019-04-16] MEDS: Aspirin 81 MG Tab.EC PO SCH (09:20)
[2019-04-16] MEDS: Furosemide 40 MG/4 ML VIAL IVPUSH SCH (09:21)
[2019-04-16] MEDS: Citalopram 20 MG Tab PO SCH (09:21)
[2019-04-16] MEDS: Enoxaparin 40 MG/0.4 ML Syringe SUBCUT SCH ×2 (09:21→21:11)
[2019-04-16] MEDS: Albuterol/Ipratropium 3.0-0.5 MG/3 ML Neb Soln NEB SCH ×5 (10:56→23:59)
--- NOTE | 2019-04-16 12:37 | CR ---
Chest: Two views of the chest were obtained. Comparison: Prior chest x-ray of 04/14/19. Findings: Slight increased density is noted within the left mid and lower lung. Lower lung has an appearance of interval atelectasis. Left mid lung findings appear fairly stable. Right lung is clear. Heart size is normal. Upper mediastinum is within normal limits. Compression deformities are seen within the spine which are stable. Scattered disc space narrowing is noted within the spine which is stable. Impression: 1. Slight increased atelectasis within the left lung base. 2. Parenchymal density within the left mid lung which is stable. 3. Other findings which are believed to be incidental as described above. Diagnostic code #3
[2019-04-16] MEDS ORDERED: Furosemide 20 MG/2 ML VIAL IVPUSH ONE (15:00)
--- NOTE | 2019-04-16 18:04 | PCM.PN ---
- General Info Date of Service: 04/16/19 Admission Dx/Problem (Free Text): Admission Diagnosis/Problem Admission Diagnosis/Problem CHF, Congestive heart failure Subjective Update: patient states he is feeling well but still requires 5 L nasal cannula. He states that he is likely had low oxygenation for almost 2 years. 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 He thinks that several times in the clinic he has had low oxygenation. Review of his clinic notes shows that over the last few months his SPO2 has been in the low 90s documented a couple of times. he thinks he has had SPO2's in the 80s from 86-88%. - Patient Data Vitals - Most Recent: Last Vital Signs Temp 98.4 F 04/16/19 15:12 Pulse 92 04/16/19 15:12 Resp 24 H 04/16/19 15:41 BP 155/75 H 04/16/19 15:12 Pulse Ox 91 L 04/16/19 15:50 Weight - Most Recent: 375 lb 4.8 oz I&O - Last 24 Hours: Intake & Output 04/16/19 04/16/19 04/16/19 06:59 14:59 22:59 Intake Total 200 300 400 Output Total 1950 1200 Balance -1750 300 -800 Lab Results Last 24 Hours: Laboratory Results - last 24 hr 04/16/19 04/16/19 Range/Units 06:52 06:52 WBC 10.23 H (4.23-9.07) K/mm3 RBC 5.85 (4.63-6.08) M/mm3 Hgb 17.0 (13.7-17.5) gm/dl Hct 56.7 H (40.1-51.0) % MCV 96.9 H (79.0-92.2) fl MCH 29.1 (25.7-32.2) pg MCHC 30.0 L (32.2-35.5) g/dl RDW Std Deviation 54.0 H (35.1-43.9) fL Plt Count 180 (163-337) K/mm3 MPV 10.4 (9.4-12.3) fl Neut % (Auto) 69.1 H (34.0-67.9) % Lymph % (Auto) 14.6 L (21.8-53.1) % [place] % (Auto) 14.2 H (5.3-12.2) % Eos % (Auto) 1.7 (0.8-7.0) Baso % (Auto) 0.2 (0.1-1.2) % Neut # (Auto) 7.08 H (1.78-5.38) K/mm3 Lymph # (Auto) 1.49 (1.32-3.57) K/mm3 [place] # (Auto) 1.45 H (0.30-0.82) K/mm3 Eos # (Auto) 0.17 (0.04-0.54) K/mm3 Baso # (Auto) 0.02 (0.01-0.08) K/mm3 Sodium 142 (136-145) mEq/L Potassium 3.8 (3.5-5.1) mEq/L Chloride 97 L (98-107) mEq/L Carbon Dioxide 39 H (21-32) mEq/L Anion Gap 9.8 (5-15) BUN 30 H (7-18) mg/dL Creatinine 1.6 H (0.7-1.3) mg/dL Est Cr Clr Drug Dosing 52.02 mL/min Estimated GFR (MDRD) 44 (>60) mL/min BUN/Creatinine Ratio 18.8 H (14-18) Glucose 106 (80-115) mg/dL Calcium 9.4 (8.5-10.1) mg/dL Magnesium 2.3 (1.8-2.4) mg/dl Total Bilirubin 1.8 H (0.2-1.0) mg/dL AST 29 (15-37) U/L ALT 54 (16-63) U/L Alkaline Phosphatase 71 (46-116) U/L Total Protein 7.5 (6.4-8.2) g/dl Albumin 3.6 (3.4-5.0) g/dl Globulin 3.9 gm/dL Albumin/Globulin Ratio 0.9 L (1-2) Med Orders - Current: Current Medications Acetaminophen (Tylenol) 650 mg PO Q4H PRN PRN Reason: Pain/Fever Last Admin: 04/15/19 05:22 Dose: 650 mg Albuterol/Ipratropium (Duoneb 3.0-0.5 Mg/3 Ml) 3 ml NEB Q6HR JAYA Aspirin (Halfprin) 81 mg PO DAILY JAYA Last Admin: 04/16/19 09:20 Dose: 81 mg Calcium Carbonate/Glycine (Tums) 1,000 mg PO Q2H PRN PRN Reason: Indigestion Last Admin: 04/15/19 10:35 Dose: 1,000 mg Citalopram Hydrobromide (Celexa) 20 mg PO DAILY [facility] Last Admin: 04/16/19 09:21 Dose: 20 mg Cyclobenzaprine HCl (Flexeril) 10 mg PO TID PRN PRN Reason: Muscle Spasm Enoxaparin Sodium (Lovenox) 40 mg SUBCUT BID [facility] Last Admin: 04/16/19 09:21 Dose: 40 mg Furosemide (Lasix) 40 mg IVPUSH DAILY [facility] Last Admin: 04/16/19 09:21 Dose: 40 mg Pantoprazole Sodium (Protonix) 40 mg PO ACBREAKFAST [facility] Last Admin: 04/16/19 06:31 Dose: 40 mg Sodium Chloride (Saline Flush) 10 ml FLUSH ASDIRECTED PRN PRN Reason: Keep Vein Open Last Admin: 04/14/19 15:42 Dose: 10 ml Spironolactone (Aldactone) 12.5 mg PO DAILY [facility] Last Admin: 04/16/19 09:20 Dose: 12.5 mg Tamsulosin HCl (Flomax) 0.4 mg PO DAILY [facility] Last Admin: 04/16/19 09:20 Dose: 0.4 mg Discontinued Medications Albuterol/Ipratropium (Duoneb 3.0-0.5 Mg/3 Ml) 3 ml NEB Q4HRRT [facility] Stop: 04/16/19 18:01 Last Admin: 04/16/19 15:48 Dose: 3 ml Albuterol/Ipratropium (Duoneb 3.0-0.5 Mg/3 Ml) 3 ml NEB Q6HR [facility] Last Admin: 04/16/19 10:56 Dose: Not Given Furosemide (Lasix) 60 mg IVPUSH NOW ONE Stop: 04/14/19 16:29 Last Admin: 04/14/19 16:40 Dose: 60 mg Furosemide (Lasix) 60 mg IVPUSH QAM [facility] Last Admin: 04/15/19 08:13 Dose: 60 mg Furosemide (Lasix) 40 mg IVPUSH NOW ONE Stop: 04/15/19 14:14 Last Admin: 04/15/19 14:34 Dose: 40 mg Furosemide (Lasix) 20 mg IVPUSH ONETIME ONE Stop: 04/16/19 15:01 Last Admin: 04/16/19 15:36 Dose: 20 mg Hydralazine HCl (Apresoline) 25 mg PO Q8H [facility] Last Admin: 04/15/19 05:33 Dose: 25 mg Influenza Virus Vaccine (Pharmacy To Dose - Influenza Vaccine) 1 each IM ONETIME ONE Stop: 04/14/19 20:39 Influenza Virus Vaccine (Fluzone High-Dose Syringe) 180 mcg IM .ONCE ONE Stop: 04/14/19 21:01 Isosorbide Dinitrate (Isordil) 10 mg PO Q8H [facility] Last Admin: 04/15/19 05:32 Dose: 10 mg Isosorbide Dinitrate (Isordil) 10 mg PO ONETIME ONE Stop: 04/14/19 22:01 Last Admin: 04/14/19 21:38 Dose: 10 mg Spironolactone (Aldactone) 12.5 mg PO ONETIME ONE Stop: 04/15/19 14:14 Last Admin: 04/15/19 14:34 Dose: 12.5 mg - Exam Quality Assessment: Supplemental Oxygen General: Alert, Oriented HEENT: Pupils Equal, Pupils Reactive, EOMI, Mucous Membr. Moist/[place] Neck: Supple Lungs: Decreased Breath Sounds (likely secondary to body habitus), Wheezing ( faint wheeze bilateral lower midlung siegel). No: Normal Respiratory Effort ( slight increased respiratory effort) Cardiovascular: Regular Rate, Regular Rhythm GI/Abdominal Exam: Normal Bowel Sounds, Soft, Non-Tender Extremities: Pedal Edema Skin: Warm, Dry, Intact Neurological: No New Focal Deficit Psy/Mental Status: Alert, Normal Affect, Normal Mood - Problem List Review Problem List Initiated/Reviewed/Updated: Yes - My Orders Last 24 Hours: My Active Orders 04/15/19 18:22 Cyclobenzaprine [Flexeril] 10 mg PO TID PRN 04/16/19 09:00 Furosemide [Lasix] 40 mg IVPUSH DAILY Spironolactone [Aldactone] 12.5 mg PO DAILY 04/16/19 10:32 RT Aerosol Therapy [RC] ASDIRECTED 04/16/19 11:42 Chest Physiotherapy [RT Chest Physiotherapy] [RC] ASDIRECTED 04/16/19 17:36 RT Incentive Spirometry [RC] ASDIRECTED 04/17/19 00:00 Albuterol/Ipratropium [DuoNeb 3.0-0.5 MG/3 ML] 3 ml NEB Q6HR 04/17/19 05:11 CBC WITH AUTO DIFF [HEME] AM CMP [COMPREHENSIVE METABOLIC PN,CMP] [CHEM] AM MAGNESIUM [CHEM] AM 04/18/19 05:11 CBC WITH AUTO DIFF [HEME] AM CMP [COMPREHENSIVE METABOLIC PN,CMP] [CHEM] AM MAGNESIUM [CHEM] AM - Plan Plan:: Assessment * New onset CHF (HFpEF) * likely secondary to obesity, hypertension, and sleep-disordered breathing. * good urine output and 8 pound weight loss. * Increasing bicarb suggest contraction metabolic alkalosis 2/2 aggressive diuresis. * echocardiogram from 04/13/2019: technically suboptimal study. * left ventricle was not well visualized. * The left ventricular ejection fraction is 55-59%, with normal systolic function. This is an estimate. * Left ventricular disc diastolic filling is grade 2 diastolic dysfunction by spectral Doppler. * Aortic valve - no aortic valve stenosis by spectral Doppler. * There is an aortic aneurysm located in the ascending aorta kelvin * the IVC is normal in size with greater than 50% respirophasic collapse suggesting an RA pressure of 0-5 mmHg * ascending aortic aneurysm measuring 4.1 cm * appointment with cardiology to be scheduled * Hypoxemia * On 4 L nasal cannula sPO2 approximately 95% * He gives history of possible chronic hypoxemia, which is strengthened based on his compensated respiratory acidosis * Chronic renal insufficiency * Old records demonstrate estimated GFR of 51 in June and February of this year * Morbid obesity * BMI 52 * Hypertension * history of metoprolol tartrate 25 mg twice a day, but current med list does not have him taking it. * No current IZZY inhibitor or ARB * Sleep apnea * On CPAP at home, but not sure of pressure but thinks it's 10 * Stasis dermatitis * Confirms that he has chronic lower extremity edema * BPH * On tamsulosin Plan * Admit to medical floor on telemetry * FiO2 to keep SPO2 greater than 92% * Decrease rate of diuresis * Lasix 40 mg IV given this morning * Lasix 20 mg IV this afternoon * DuoNeb QID with EzPAP * Incentive spirometry. * We will not start an IZZY inhibitor or ARB secondary to renal insufficiency at this time but may benefit from it in the future * Spironolactone 12.5 mg by mouth. * consider stress test as outpatient * Monitor CBC, CMP, and magnesium * VTE prophylaxis with Lovenox. He will require 40 mg twice a day secondary to his morbid obesity * CODE STATUS: Full code * Length of stay 3-4 days
[2019-04-17] MEDS: Albuterol/Ipratropium 3.0-0.5 MG/3 ML Neb Soln NEB SCH ×3 (06:17→17:06)
[2019-04-17] MEDS: Pantoprazole 40 MG Tab.CR PO SCH (06:37)
[2019-04-17] MEDS ORDERED: Potassium Chloride 20 MEQ Tab.ER PO ONE (08:17)
[2019-04-17] MEDS: Enoxaparin 40 MG/0.4 ML Syringe SUBCUT SCH ×2 (08:43→20:10)
[2019-04-17] MEDS: Citalopram 20 MG Tab PO SCH (08:44)
[2019-04-17] MEDS: Furosemide 40 MG/4 ML VIAL IVPUSH SCH (08:44)
[2019-04-17] MEDS: Spironolactone 25 MG Tab PO SCH (08:44)
[2019-04-17] MEDS: Aspirin 81 MG Tab.EC PO SCH (08:44)
[2019-04-17] MEDS: Tamsulosin 0.4 MG Cap.ER PO SCH (08:44)
--- NOTE | 2019-04-17 13:26 | PCM.PN ---
- General Info Date of Service: 04/17/19 Admission Dx/Problem (Free Text): Admission Diagnosis/Problem Admission Diagnosis/Problem CHF, Congestive heart failure Subjective Update: Espinoza is without complains. Breathing continues to be improved. Currently on 4 L NC. - Review of Systems General: Reports: No Symptoms HEENT: Reports: No Symptoms Pulmonary: Reports: No Symptoms Cardiovascular: Reports: No Symptoms Gastrointestinal: Reports: No Symptoms Musculoskeletal: Reports: No Symptoms - Patient Data Vitals - Most Recent: Last Vital Signs Temp 98.2 F 04/17/19 08:14 Pulse 88 04/17/19 09:10 Resp 22 H 04/17/19 08:14 BP 93/53 L 04/17/19 08:14 Pulse Ox 92 L 04/17/19 11:23 Weight - Most Recent: 372 lb 4.8 oz I&O - Last 24 Hours: Intake & Output 04/16/19 04/17/19 04/17/19 22:59 06:59 14:59 Intake Total 1140 250 300 Output Total 1200 1200 Balance -60 -950 300 Lab Results Last 24 Hours: Laboratory Results - last 24 hr 04/17/19 04/17/19 04/17/19 Range/Units 05:11 05:11 05:11 WBC 8.87 (4.23-9.07) K/mm3 RBC 5.61 (4.63-6.08) M/mm3 Hgb 16.4 (13.7-17.5) gm/dl Hct 54.1 H (40.1-51.0) % MCV 96.4 H (79.0-92.2) fl MCH 29.2 (25.7-32.2) pg MCHC 30.3 L (32.2-35.5) g/dl RDW Std Deviation 54.1 H (35.1-43.9) fL Plt Count 176 (163-337) K/mm3 MPV 10.9 (9.4-12.3) fl Neut % (Auto) 63.3 (34.0-67.9) % Lymph % (Auto) 19.6 L (21.8-53.1) % [place] % (Auto) 15.2 H (5.3-12.2) % Eos % (Auto) 1.6 (0.8-7.0) Baso % (Auto) 0.1 (0.1-1.2) % Neut # (Auto) 5.61 H (1.78-5.38) K/mm3 Lymph # (Auto) 1.74 (1.32-3.57) K/mm3 [place] # (Auto) 1.35 H (0.30-0.82) K/mm3 Eos # (Auto) 0.14 (0.04-0.54) K/mm3 Baso # (Auto) 0.01 (0.01-0.08) K/mm3 Manual Slide Review Abnormal smear D-Dimer, Quantitative 0.29 (0.19-0.50) mg/L Sodium 141 (136-145) mEq/L Potassium 3.4 L (3.5-5.1) mEq/L Chloride 97 L (98-107) mEq/L Carbon Dioxide 38 H (21-32) mEq/L Anion Gap 9.4 (5-15) BUN 33 H (7-18) mg/dL Creatinine 1.7 H (0.7-1.3) mg/dL Est Cr Clr Drug Dosing 48.96 mL/min Estimated GFR (MDRD) 41 (>60) mL/min BUN/Creatinine Ratio 19.4 H (14-18) Glucose 105 (80-115) mg/dL Calcium 9.2 (8.5-10.1) mg/dL Magnesium 2.4 (1.8-2.4) mg/dl Total Bilirubin 1.8 H (0.2-1.0) mg/dL AST 28 (15-37) U/L ALT 43 (16-63) U/L Alkaline Phosphatase 68 (46-116) U/L Total Protein 7.2 (6.4-8.2) g/dl Albumin 3.5 (3.4-5.0) g/dl Globulin 3.7 gm/dL Albumin/Globulin Ratio 1.0 (1-2) Med Orders - Current: Current Medications Acetaminophen (Tylenol) 650 mg PO Q4H PRN PRN Reason: Pain/Fever Last Admin: 04/15/19 05:22 Dose: 650 mg Albuterol/Ipratropium (Duoneb 3.0-0.5 Mg/3 Ml) 3 ml NEB Q6HR JAYA Last Admin: 04/17/19 11:22 Dose: 3 ml Aspirin (Halfprin) 81 mg PO DAILY [facility] Last Admin: 04/17/19 08:44 Dose: 81 mg Calcium Carbonate/Glycine (Tums) 1,000 mg PO Q2H PRN PRN Reason: Indigestion Last Admin: 04/15/19 10:35 Dose: 1,000 mg Citalopram Hydrobromide (Celexa) 20 mg PO DAILY [facility] Last Admin: 04/17/19 08:44 Dose: 20 mg Cyclobenzaprine HCl (Flexeril) 10 mg PO TID PRN PRN Reason: Muscle Spasm Enoxaparin Sodium (Lovenox) 40 mg SUBCUT BID [facility] Last Admin: 04/17/19 08:43 Dose: 40 mg Furosemide (Lasix) 40 mg IVPUSH DAILY [facility] Last Admin: 04/17/19 08:44 Dose: 40 mg Furosemide (Lasix) 40 mg IVPUSH ONETIME ONE Stop: 04/17/19 15:01 Pantoprazole Sodium (Protonix) 40 mg PO ACBREAKFAST [facility] Last Admin: 04/17/19 06:37 Dose: 40 mg Sodium Chloride (Saline Flush) 10 ml FLUSH ASDIRECTED PRN PRN Reason: Keep Vein Open Last Admin: 04/14/19 15:42 Dose: 10 ml Spironolactone (Aldactone) 12.5 mg PO DAILY [facility] Last Admin: 04/17/19 08:44 Dose: 12.5 mg Tamsulosin HCl (Flomax) 0.4 mg PO DAILY [facility] Last Admin: 04/17/19 08:44 Dose: 0.4 mg Discontinued Medications Albuterol/Ipratropium (Duoneb 3.0-0.5 Mg/3 Ml) 3 ml NEB Q4HRRT [facility] Stop: 04/16/19 18:01 Last Admin: 04/16/19 18:48 Dose: 3 ml Albuterol/Ipratropium (Duoneb 3.0-0.5 Mg/3 Ml) 3 ml NEB Q6HR [facility] Last Admin: 04/16/19 10:56 Dose: Not Given Furosemide (Lasix) 60 mg IVPUSH NOW ONE Stop: 04/14/19 16:29 Last Admin: 04/14/19 16:40 Dose: 60 mg Furosemide (Lasix) 60 mg IVPUSH QAM [facility] Last Admin: 04/15/19 08:13 Dose: 60 mg Furosemide (Lasix) 40 mg IVPUSH NOW ONE Stop: 04/15/19 14:14 Last Admin: 04/15/19 14:34 Dose: 40 mg Furosemide (Lasix) 20 mg IVPUSH ONETIME ONE Stop: 04/16/19 15:01 Last Admin: 04/16/19 15:36 Dose: 20 mg Hydralazine HCl (Apresoline) 25 mg PO Q8H [facility] Last Admin: 04/15/19 05:33 Dose: 25 mg Influenza Virus Vaccine (Pharmacy To Dose - Influenza Vaccine) 1 each IM ONETIME ONE Stop: 04/14/19 20:39 Influenza Virus Vaccine (Fluzone High-Dose 2018- Syringe) 180 mcg IM .ONCE ONE Stop: 04/14/19 21:01 Isosorbide Dinitrate (Isordil) 10 mg PO Q8H [facility] Last Admin: 04/15/19 05:32 Dose: 10 mg Isosorbide Dinitrate (Isordil) 10 mg PO ONETIME ONE Stop: 04/14/19 22:01 Last Admin: 04/14/19 21:38 Dose: 10 mg Potassium Chloride (Klor-Con M20) 40 meq PO ONETIME ONE Stop: 04/17/19 08:18 Last Admin: 04/17/19 08:44 Dose: 40 meq Spironolactone (Aldactone) 12.5 mg PO ONETIME ONE Stop: 04/15/19 14:14 Last Admin: 04/15/19 14:34 Dose: 12.5 mg - Exam Quality Assessment: Supplemental Oxygen General: Alert, Oriented HEENT: Pupils Equal, EOMI, Mucous Membr. Moist/[place] Neck: Supple Lungs: Normal Respiratory Effort, Decreased Breath Sounds, Wheezing Cardiovascular: Regular Rate, Regular Rhythm GI/Abdominal Exam: Normal Bowel Sounds, Soft, Non-Tender, No Organomegaly, No Distention, No Abnormal Bruit, No Mass Extremities: Normal Inspection, Normal Range of Motion, Non-Tender, Normal Capillary Refill, Pedal Edema (1-2+) Skin: Warm, Dry, Intact Psy/Mental Status: Alert, Normal Affect, Normal Mood - Problem List Review Problem List Initiated/Reviewed/Updated: Yes - My Orders Last 24 Hours: My Active Orders 04/16/19 17:36 RT Incentive Spirometry [RC] ASDIRECTED 04/17/19 00:00 Albuterol/Ipratropium [DuoNeb 3.0-0.5 MG/3 ML] 3 ml NEB Q6HR 04/17/19 09:56 Chest wo Cont [CT] Routine 04/17/19 15:00 Furosemide [Lasix] 40 mg IVPUSH ONETIME ONE 04/18/19 05:00 PRO B-TYPE NATRIUR PEPT,BNPPRO [CHEM] Routine 04/18/19 05:11 CBC WITH AUTO DIFF [HEME] AM CMP [COMPREHENSIVE METABOLIC PN,CMP] [CHEM] AM MAGNESIUM [CHEM] AM - Plan Plan:: Assessment * New onset CHF (HFpEF) * likely secondary to obesity, hypertension, and sleep-disordered breathing. * good urine output and 20+ pound weight loss. * Increased bicarb suggest contraction metabolic alkalosis 2/2 aggressive diuresis. * echocardiogram from 04/13/2019: technically suboptimal study. * left ventricle was not well visualized. * The left ventricular ejection fraction is 55-59%, with normal systolic function. This is an estimate. * Left ventricular disc diastolic filling is grade 2 diastolic dysfunction by spectral Doppler. * Aortic valve - no aortic valve stenosis by spectral Doppler. * There is an aortic aneurysm located in the ascending aorta kelvin * the IVC is normal in size with greater than 50% respirophasic collapse suggesting an RA pressure of 0-5 mmHg * ascending aortic aneurysm measuring 4.1 cm * appointment with cardiology to be scheduled * Hypoxemia * On 4 L nasal cannula sPO2 approximately 95% * He gives history of possible chronic hypoxemia, which is strengthened based on his compensated respiratory acidosis * CT chest: Elevated right hemidiaphragm causing mild compressive type atelectasis within the right lung base. Otherwise, nothing acute. * Chronic renal insufficiency * Old records demonstrate estimated GFR of 51 in June and February of this year * Morbid obesity * BMI 49 * Hypertension * history of metoprolol tartrate 25 mg twice a day, but current med list does not have him taking it. * No current IZZY inhibitor or ARB * Started spironolactone * Sleep apnea * On CPAP at home, but not sure of pressure but thinks it's 10 * Stasis dermatitis * Confirms that he has chronic lower extremity edema * Hypokalemia 2/2 diuresis * BPH * On tamsulosin Plan * Admit to medical floor on telemetry * FiO2 to keep SPO2 greater than 92% * Decrease rate of diuresis * Lasix 40 mg IV given this morning * Lasix 40 mg IV this afternoon * DuoNeb QID with EzPAP * Incentive spirometry. * We will not start an IZZY inhibitor or ARB secondary to renal insufficiency at this time but may benefit from it in the future * Spironolactone 12.5 mg by mouth. * K-Dur 40 meq po x 1. * consider stress test/cardiology consult as outpatient * Monitor CBC, CMP, and magnesium * VTE prophylaxis with Lovenox. He will require 40 mg twice a day secondary to his morbid obesity * CODE STATUS: Full code * Length of stay 2-3 days
--- NOTE | 2019-04-17 13:33 | CT ---
CT chest Technique: Multiple axial sections through the chest were obtained. Intravenous contrast was not utilized. Comparison: Prior chest x-ray of 04/16/19. Prior chest CT study of 01/20/15. Findings: Right hemidiaphragm is elevated. There is mild compressive atelectasis within the right lung base. Mediastinum and hilar region show no adenopathy. Aorta shows atherosclerotic calcification without aneurysm. Moderate coronary artery calcification is seen. No pericardial thickening is seen. Visualized upper abdominal structures shows no discrete abnormality. Lungs show no acute parenchymal change. Bone window settings were reviewed which shows no acute osseous abnormality. Impression: 1. Elevated right hemidiaphragm causing mild compressive type atelectasis within the right lung base. 2. Nothing acute is otherwise seen on noncontrast CT study of the chest. Diagnostic code #2
[2019-04-17] MEDS ORDERED: Furosemide 40 MG/4 ML VIAL IVPUSH ONE (15:00)
[2019-04-17] MEDS ORDERED: methylPREDNISolone Sodium Succinate 40 MG/1 ML SDV IVPUSH ONE (21:15)
[2019-04-18] MEDS: Albuterol/Ipratropium 3.0-0.5 MG/3 ML Neb Soln NEB SCH ×4 (00:09→17:11)
[2019-04-18] MEDS: methylPREDNISolone Sodium Succinate 40 MG/1 ML SDV IVPUSH SCH ×4 (03:45→21:30)
[2019-04-18] MEDS: Pantoprazole 40 MG Tab.CR PO SCH (06:51)
[2019-04-18] MEDS: Spironolactone 25 MG Tab PO SCH (08:19)
[2019-04-18] MEDS: Furosemide 40 MG/4 ML VIAL IVPUSH SCH (08:19)
[2019-04-18] MEDS: Citalopram 20 MG Tab PO SCH (08:19)
[2019-04-18] MEDS: Tamsulosin 0.4 MG Cap.ER PO SCH (08:19)
[2019-04-18] MEDS: Aspirin 81 MG Tab.EC PO SCH (08:19)
[2019-04-18] MEDS: Enoxaparin 40 MG/0.4 ML Syringe SUBCUT SCH ×2 (08:20→21:30)
--- NOTE | 2019-04-18 11:20 | PCM.PN ---
- General Info Date of Service: 04/18/19 Admission Dx/Problem (Free Text): Admission Diagnosis/Problem Admission Diagnosis/Problem CHF, Congestive heart failure Subjective Update: Espinoza is continuing to feel better but requiring high amounts of oxygen. This morning he was only satting in the upper 80s on 6 L nasal cannula. ABG showed a pH of 7.43, PCO2 51.3 which is down from admission, PCO2 62 which is also down from admission on higher FiO2, bicarbonate 33.8 on 6 L nasal cannula. I spoke with Dr. Horne in pulmonology from [facility] in [place] recommended BiPAP and Diamox. Functional Status: Reports: Pain Controlled - Review of Systems General: Reports: No Symptoms HEENT: Reports: No Symptoms Pulmonary: Reports: Shortness of Breath Cardiovascular: Reports: No Symptoms - Patient Data Vitals - Most Recent: Last Vital Signs Temp 99.1 F 04/18/19 08:36 Pulse 98 04/18/19 08:36 Resp 28 H 04/18/19 08:36 BP 134/66 04/18/19 08:36 Pulse Ox 89 L 04/18/19 08:36 Weight - Most Recent: 370 lb I&O - Last 24 Hours: Intake & Output 04/17/19 04/18/19 04/18/19 22:59 06:59 14:59 Intake Total 800 400 120 Output Total 925 1300 Balance -125 -900 120 Lab Results Last 24 Hours: Laboratory Results - last 24 hr 04/18/19 04/18/19 04/18/19 Range/Units 04:50 04:50 04:50 WBC 6.97 (4.23-9.07) K/mm3 RBC 5.72 (4.63-6.08) M/mm3 Hgb 16.8 (13.7-17.5) gm/dl Hct 54.9 H (40.1-51.0) % MCV 96.0 H (79.0-92.2) fl MCH 29.4 (25.7-32.2) pg MCHC 30.6 L (32.2-35.5) g/dl RDW Std Deviation 53.4 H (35.1-43.9) fL Plt Count 170 (163-337) K/mm3 MPV 10.6 (9.4-12.3) fl Neut % (Auto) 90.9 H (34.0-67.9) % Lymph % (Auto) 7.3 L (21.8-53.1) % [place] % (Auto) 1.7 L (5.3-12.2) % Eos % (Auto) 0 L (0.8-7.0) Baso % (Auto) 0.0 L (0.1-1.2) % Neut # (Auto) 6.33 H (1.78-5.38) K/mm3 Lymph # (Auto) 0.51 L (1.32-3.57) K/mm3 [place] # (Auto) 0.12 L (0.30-0.82) K/mm3 Eos # (Auto) 0.00 L (0.04-0.54) K/mm3 Baso # (Auto) 0.00 L (0.01-0.08) K/mm3 Manual Slide Review Abnormal smear Puncture Site ABG pH (7.35-7.45) ABG pCO2 (35.0-45.0) mmHg ABG pO2 (80.0-100.0) mmHg ABG HCO3 (22.0-26.0) meq/L ABG O2 Saturation (96.0-97.0) % ABG Base Excess (-2-2.0) [place] Test A-a Gradient mmHg O2 Delivery Device Oxygen Flow Rate FiO2 (21.00-100.00) % Sodium 139 (136-145) mEq/L Potassium 4.4 (3.5-5.1) mEq/L Chloride 97 L (98-107) mEq/L Carbon Dioxide 35 H (21-32) mEq/L Anion Gap 11.4 (5-15) BUN 38 H (7-18) mg/dL Creatinine 1.8 H (0.7-1.3) mg/dL Est Cr Clr Drug Dosing 46.24 mL/min Estimated GFR (MDRD) 38 (>60) mL/min BUN/Creatinine Ratio 21.1 H (14-18) Glucose 169 H (80-115) mg/dL Calcium 9.3 (8.5-10.1) mg/dL Magnesium 2.4 (1.8-2.4) mg/dl Total Bilirubin 1.5 H (0.2-1.0) mg/dL AST 30 (15-37) U/L ALT 50 (16-63) U/L Alkaline Phosphatase 69 (46-116) U/L NT-Pro-B Natriuret Pep 145 H (0-125) pg/mL Total Protein 7.5 (6.4-8.2) g/dl Albumin 3.5 (3.4-5.0) g/dl Globulin 4.0 gm/dL Albumin/Globulin Ratio 0.9 L (1-2) 04/18/19 Range/Units 09:10 WBC (4.23-9.07) K/mm3 RBC (4.63-6.08) M/mm3 Hgb (13.7-17.5) gm/dl Hct (40.1-51.0) % MCV (79.0-92.2) fl MCH (25.7-32.2) pg MCHC (32.2-35.5) g/dl RDW Std Deviation (35.1-43.9) fL Plt Count (163-337) K/mm3 MPV (9.4-12.3) fl Neut % (Auto) (34.0-67.9) % Lymph % (Auto) (21.8-53.1) % [place] % (Auto) (5.3-12.2) % Eos % (Auto) (0.8-7.0) Baso % (Auto) (0.1-1.2) % Neut # (Auto) (1.78-5.38) K/mm3 Lymph # (Auto) (1.32-3.57) K/mm3 [place] # (Auto) (0.30-0.82) K/mm3 Eos # (Auto) (0.04-0.54) K/mm3 Baso # (Auto) (0.01-0.08) K/mm3 Manual Slide Review Puncture Site Rt radial ABG pH 7.43 (7.35-7.45) ABG pCO2 51.3 H (35.0-45.0) mmHg ABG pO2 62.0 L (80.0-100.0) mmHg ABG HCO3 33.8 H (22.0-26.0) meq/L ABG O2 Saturation 85.4 L (96.0-97.0) % ABG Base Excess 7.9 H (-2-2.0) [place] Test Positive A-a Gradient 188 mmHg O2 Delivery Device Nasal cannula Oxygen Flow Rate 6.0 FiO2 44.00 (21.00-100.00) % Sodium (136-145) mEq/L Potassium (3.5-5.1) mEq/L Chloride (98-107) mEq/L Carbon Dioxide (21-32) mEq/L Anion Gap (5-15) BUN (7-18) mg/dL Creatinine (0.7-1.3) mg/dL Est Cr Clr Drug Dosing mL/min Estimated GFR (MDRD) (>60) mL/min BUN/Creatinine Ratio (14-18) Glucose (80-115) mg/dL Calcium (8.5-10.1) mg/dL Magnesium (1.8-2.4) mg/dl Total Bilirubin (0.2-1.0) mg/dL AST (15-37) U/L ALT (16-63) U/L Alkaline Phosphatase (46-116) U/L NT-Pro-B Natriuret Pep (0-125) pg/mL Total Protein (6.4-8.2) g/dl Albumin (3.4-5.0) g/dl Globulin gm/dL Albumin/Globulin Ratio (1-2) Med Orders - Current: Current Medications Acetaminophen (Tylenol) 650 mg PO Q4H PRN PRN Reason: Pain/Fever Last Admin: 04/15/19 05:22 Dose: 650 mg Albuterol/Ipratropium (Duoneb 3.0-0.5 Mg/3 Ml) 3 ml NEB Q6HR [facility] Last Admin: 04/18/19 06:15 Dose: 3 ml Aspirin (Halfprin) 81 mg PO DAILY [facility] Last Admin: 04/18/19 08:19 Dose: 81 mg Calcium Carbonate/Glycine (Tums) 1,000 mg PO Q2H PRN PRN Reason: Indigestion Last Admin: 04/15/19 10:35 Dose: 1,000 mg Citalopram Hydrobromide (Celexa) 20 mg PO DAILY [facility] Last Admin: 04/18/19 08:19 Dose: 20 mg Cyclobenzaprine HCl (Flexeril) 10 mg PO TID PRN PRN Reason: Muscle Spasm Enoxaparin Sodium (Lovenox) 40 mg SUBCUT BID [facility] Last Admin: 04/18/19 08:20 Dose: 40 mg Furosemide (Lasix) 40 mg PO DAILY [facility] Methylprednisolone Sodium Succinate (Solu-Medrol) 60 mg IVPUSH Q6H [facility] Last Admin: 04/18/19 08:20 Dose: 60 mg Pantoprazole Sodium (Protonix) 40 mg PO ACBREAKFAST [facility] Last Admin: 04/18/19 06:51 Dose: 40 mg Sodium Chloride (Saline Flush) 10 ml FLUSH ASDIRECTED PRN PRN Reason: Keep Vein Open Last Admin: 04/14/19 15:42 Dose: 10 ml Spironolactone (Aldactone) 12.5 mg PO DAILY [facility] Last Admin: 04/18/19 08:19 Dose: 12.5 mg Tamsulosin HCl (Flomax) 0.4 mg PO DAILY [facility] Last Admin: 04/18/19 08:19 Dose: 0.4 mg Discontinued Medications Albuterol/Ipratropium (Duoneb 3.0-0.5 Mg/3 Ml) 3 ml NEB Q4HRRT [facility] Stop: 04/16/19 18:01 Last Admin: 04/16/19 18:48 Dose: 3 ml Albuterol/Ipratropium (Duoneb 3.0-0.5 Mg/3 Ml) 3 ml NEB Q6HR [facility] Last Admin: 04/16/19 10:56 Dose: Not Given Furosemide (Lasix) 60 mg IVPUSH NOW ONE Stop: 04/14/19 16:29 Last Admin: 04/14/19 16:40 Dose: 60 mg Furosemide (Lasix) 60 mg IVPUSH QAM [facility] Last Admin: 04/15/19 08:13 Dose: 60 mg Furosemide (Lasix) 40 mg IVPUSH NOW ONE Stop: 04/15/19 14:14 Last Admin: 04/15/19 14:34 Dose: 40 mg Furosemide (Lasix) 40 mg IVPUSH DAILY [facility] Last Admin: 04/18/19 08:19 Dose: 40 mg Furosemide (Lasix) 20 mg IVPUSH ONETIME ONE Stop: 04/16/19 15:01 Last Admin: 04/16/19 15:36 Dose: 20 mg Furosemide (Lasix) 40 mg IVPUSH ONETIME ONE Stop: 04/17/19 15:01 Last Admin: 04/17/19 15:42 Dose: 40 mg Hydralazine HCl (Apresoline) 25 mg PO Q8H [facility] Last Admin: 04/15/19 05:33 Dose: 25 mg Influenza Virus Vaccine (Pharmacy To Dose - Influenza Vaccine) 1 each IM ONETIME ONE Stop: 04/14/19 20:39 Influenza Virus Vaccine (Fluzone High-Dose 2018- Syringe) 180 mcg IM .ONCE ONE Stop: 04/14/19 21:01 Isosorbide Dinitrate (Isordil) 10 mg PO Q8H [facility] Last Admin: 04/15/19 05:32 Dose: 10 mg Isosorbide Dinitrate (Isordil) 10 mg PO ONETIME ONE Stop: 04/14/19 22:01 Last Admin: 04/14/19 21:38 Dose: 10 mg Methylprednisolone Sodium Succinate (Solu-Medrol) 60 mg IVPUSH ONETIME ONE Stop: 04/17/19 21:16 Last Admin: 04/17/19 21:19 Dose: 60 mg Potassium Chloride (Klor-Con M20) 40 meq PO ONETIME ONE Stop: 04/17/19 08:18 Last Admin: 04/17/19 08:44 Dose: 40 meq Spironolactone (Aldactone) 12.5 mg PO ONETIME ONE Stop: 04/15/19 14:14 Last Admin: 04/15/19 14:34 Dose: 12.5 mg - Exam Quality Assessment: Supplemental Oxygen General: Alert, Oriented HEENT: Pupils Equal, Pupils Reactive, EOMI, Mucous Membr. Moist/[place] Neck: Supple Lungs: Decreased Breath Sounds. No: Normal Respiratory Effort (slight increased effort) Cardiovascular: Regular Rate, Regular Rhythm GI/Abdominal Exam: Normal Bowel Sounds, Soft, Non-Tender, No Organomegaly, No Distention, No Abnormal Bruit, No Mass Extremities: Normal Inspection Skin: Warm, Dry, Intact - Problem List Review Problem List Initiated/Reviewed/Updated: Yes - My Orders Last 24 Hours: My Active Orders 04/18/19 03:00 methylPREDNISolone Sod Succ [Solu-MEDROL] 60 mg IVPUSH Q6H 04/18/19 08:48 EKG 12 Lead [EK] Routine 04/18/19 08:49 EKG Documentation Completion [RC] ASDIRECTED 04/19/19 09:00 Furosemide [Lasix] 40 mg PO DAILY - Plan Plan:: Assessment * New onset CHF (HFpEF) * likely secondary to obesity, hypertension, and sleep-disordered breathing. * good urine output and 20+ pound weight loss. * Increased bicarb suggest contraction metabolic alkalosis 2/2 aggressive diuresis. * BNP down from over 1300 to 145. * ECG NSR rate 87. No abnormal findings. * echocardiogram from 04/13/2019: technically suboptimal study. * left ventricle was not well visualized. * The left ventricular ejection fraction is 55-59%, with normal systolic function. This is an estimate. * Left ventricular disc diastolic filling is grade 2 diastolic dysfunction by spectral Doppler. * Aortic valve - no aortic valve stenosis by spectral Doppler. * There is an aortic aneurysm located in the ascending aorta kelvin * the IVC is normal in size with greater than 50% respirophasic collapse suggesting an RA pressure of 0-5 mmHg * ascending aortic aneurysm measuring 4.1 cm * Appointment with cardiology to be scheduled * Hypoxemia * On 6 L nasal cannula sPO2 approximately 89% * He gives history of possible chronic hypoxemia, which is strengthened based on his compensated respiratory acidosis * CT chest: Elevated right hemidiaphragm causing mild compressive type atelectasis within the right lung base. Otherwise, nothing acute. * Chronic renal insufficiency * Old records demonstrate estimated GFR of 51 in June and February of this year * Morbid obesity * BMI 49 * Hypertension * history of metoprolol tartrate 25 mg twice a day, but current med list does not have him taking it. * No current IZZY inhibitor or ARB * Started spironolactone * Sleep apnea * On CPAP at home, but not sure of pressure but thinks it's 10 * Stasis dermatitis * Confirms that he has chronic lower extremity edema * Hypokalemia 2/2 diuresis * BPH * On tamsulosin Plan * Admit to medical floor on telemetry * Start BiPAP with pressures of 15/6 as tolerated * Decrease rate of diuresis * Lasix 40 mg IV given this morning * Diamox 250 mg daily * DuoNeb QID with EzPAP * Incentive spirometry. * We will not start an IZZY inhibitor or ARB secondary to renal insufficiency at this time but may benefit from it in the future * Spironolactone 12.5 mg by mouth. * consider stress test/cardiology consult as outpatient * Monitor CBC, CMP, and magnesium * VTE prophylaxis with Lovenox. He will require 40 mg twice a day secondary to his morbid obesity * CODE STATUS: Full code * Length of stay 2-3 days
[2019-04-18] MEDS: acetaZOLAMIDE 250 MG Tab PO SCH (16:34)
[2019-04-19] MEDS: Albuterol/Ipratropium 3.0-0.5 MG/3 ML Neb Soln NEB SCH ×5 (00:16→23:53)
[2019-04-19] MEDS: methylPREDNISolone Sodium Succinate 40 MG/1 ML SDV IVPUSH SCH ×4 (04:25→21:46)
[2019-04-19] MEDS: Pantoprazole 40 MG Tab.CR PO SCH ×2 (04:27→05:00)
[2019-04-19] MEDS: Citalopram 20 MG Tab PO SCH (08:20)
[2019-04-19] MEDS: Spironolactone 25 MG Tab PO SCH (08:20)
[2019-04-19] MEDS: Furosemide 40 MG Tab PO SCH (08:21)
[2019-04-19] MEDS: Tamsulosin 0.4 MG Cap.ER PO SCH (08:21)
[2019-04-19] MEDS: acetaZOLAMIDE 250 MG Tab PO SCH (08:21)
[2019-04-19] MEDS: Aspirin 81 MG Tab.EC PO SCH (08:21)
[2019-04-19] MEDS: Enoxaparin 40 MG/0.4 ML Syringe SUBCUT SCH ×2 (08:21→21:47)
--- NOTE | 2019-04-19 17:04 | PCM.PN ---
- General Info Date of Service: 04/19/19 Admission Dx/Problem (Free Text): Admission Diagnosis/Problem Admission Diagnosis/Problem CHF, Congestive heart failure Subjective Update: Espinoza is doing well and tolerated BiPAP overnight. Denies SOB or WONG. Functional Status: Reports: Pain Controlled - Review of Systems General: Reports: No Symptoms HEENT: Reports: No Symptoms Pulmonary: Reports: No Symptoms Cardiovascular: Reports: No Symptoms Gastrointestinal: Reports: No Symptoms - Patient Data Vitals - Most Recent: Last Vital Signs Temp 98.2 F 04/19/19 15:09 Pulse 81 04/19/19 15:09 Resp 18 04/19/19 15:09 BP 146/70 H 04/19/19 15:09 Pulse Ox 96 04/19/19 15:34 Weight - Most Recent: 368 lb 9.6 oz I&O - Last 24 Hours: Intake & Output 04/19/19 04/19/19 04/19/19 06:59 14:59 22:59 Intake Total 1000 300 700 Output Total 1350 Balance -350 300 700 Lab Results Last 24 Hours: Laboratory Results - last 24 hr 04/19/19 04/19/19 Range/Units 08:10 08:10 WBC 11.01 H (4.23-9.07) K/mm3 RBC 5.76 (4.63-6.08) M/mm3 Hgb 16.9 (13.7-17.5) gm/dl Hct 55.0 H (40.1-51.0) % MCV 95.5 H (79.0-92.2) fl MCH 29.3 (25.7-32.2) pg MCHC 30.7 L (32.2-35.5) g/dl RDW Std Deviation 52.4 H (35.1-43.9) fL Plt Count 194 (163-337) K/mm3 MPV 10.5 (9.4-12.3) fl Neut % (Auto) 90.5 H (34.0-67.9) % Lymph % (Auto) 4.2 L (21.8-53.1) % [place] % (Auto) 5.0 L (5.3-12.2) % Eos % (Auto) 0.2 L (0.8-7.0) Baso % (Auto) 0.0 L (0.1-1.2) % Neut # (Auto) 9.97 H (1.78-5.38) K/mm3 Lymph # (Auto) 0.46 L (1.32-3.57) K/mm3 [place] # (Auto) 0.55 (0.30-0.82) K/mm3 Eos # (Auto) 0.02 L (0.04-0.54) K/mm3 Baso # (Auto) 0.00 L (0.01-0.08) K/mm3 Manual Slide Review Normal smear Sodium 142 (136-145) mEq/L Potassium 4.5 (3.5-5.1) mEq/L Chloride 100 (98-107) mEq/L Carbon Dioxide 34 H (21-32) mEq/L Anion Gap 12.5 (5-15) BUN 48 H (7-18) mg/dL Creatinine 1.6 H (0.7-1.3) mg/dL Est Cr Clr Drug Dosing 52.02 mL/min Estimated GFR (MDRD) 44 (>60) mL/min BUN/Creatinine Ratio 30.0 H (14-18) Glucose 141 H (80-115) mg/dL Calcium 9.2 (8.5-10.1) mg/dL Magnesium 2.6 H (1.8-2.4) mg/dl Total Bilirubin 1.1 H (0.2-1.0) mg/dL AST 25 (15-37) U/L ALT 60 (16-63) U/L Alkaline Phosphatase 65 (46-116) U/L Total Protein 8.1 (6.4-8.2) g/dl Albumin 3.8 (3.4-5.0) g/dl Globulin 4.3 gm/dL Albumin/Globulin Ratio 0.9 L (1-2) Med Orders - Current: Current Medications Acetaminophen (Tylenol) 650 mg PO Q4H PRN PRN Reason: Pain/Fever Last Admin: 04/15/19 05:22 Dose: 650 mg Acetazolamide (Diamox) 250 mg PO DAILY [facility] Last Admin: 04/19/19 08:21 Dose: 250 mg Albuterol/Ipratropium (Duoneb 3.0-0.5 Mg/3 Ml) 3 ml NEB Q6HR [facility] Last Admin: 04/19/19 11:13 Dose: 3 ml Aspirin (Halfprin) 81 mg PO DAILY [facility] Last Admin: 04/19/19 08:21 Dose: 81 mg Calcium Carbonate/Glycine (Tums) 1,000 mg PO Q2H PRN PRN Reason: Indigestion Last Admin: 04/15/19 10:35 Dose: 1,000 mg Citalopram Hydrobromide (Celexa) 20 mg PO DAILY [facility] Last Admin: 04/19/19 08:20 Dose: 20 mg Cyclobenzaprine HCl (Flexeril) 10 mg PO TID PRN PRN Reason: Muscle Spasm Enoxaparin Sodium (Lovenox) 40 mg SUBCUT BID [facility] Last Admin: 04/19/19 08:21 Dose: 40 mg Furosemide (Lasix) 40 mg PO DAILY [facility] Last Admin: 04/19/19 08:21 Dose: 40 mg Methylprednisolone Sodium Succinate (Solu-Medrol) 60 mg IVPUSH Q6H [facility] Last Admin: 04/19/19 14:49 Dose: 60 mg Pantoprazole Sodium (Protonix) 40 mg PO ACBREAKFAST [facility] Last Admin: 04/19/19 05:00 Dose: Not Given Sodium Chloride (Saline Flush) 10 ml FLUSH ASDIRECTED PRN PRN Reason: Keep Vein Open Last Admin: 04/14/19 15:42 Dose: 10 ml Spironolactone (Aldactone) 12.5 mg PO DAILY [facility] Last Admin: 04/19/19 08:20 Dose: 12.5 mg Tamsulosin HCl (Flomax) 0.4 mg PO DAILY [facility] Last Admin: 04/19/19 08:21 Dose: 0.4 mg Discontinued Medications Albuterol/Ipratropium (Duoneb 3.0-0.5 Mg/3 Ml) 3 ml NEB Q4HRRT [facility] Stop: 04/16/19 18:01 Last Admin: 04/16/19 18:48 Dose: 3 ml Albuterol/Ipratropium (Duoneb 3.0-0.5 Mg/3 Ml) 3 ml NEB Q6HR [facility] Last Admin: 04/16/19 10:56 Dose: Not Given Furosemide (Lasix) 60 mg IVPUSH NOW ONE Stop: 04/14/19 16:29 Last Admin: 04/14/19 16:40 Dose: 60 mg Furosemide (Lasix) 60 mg IVPUSH QAM [facility] Last Admin: 04/15/19 08:13 Dose: 60 mg Furosemide (Lasix) 40 mg IVPUSH NOW ONE Stop: 04/15/19 14:14 Last Admin: 04/15/19 14:34 Dose: 40 mg Furosemide (Lasix) 40 mg IVPUSH DAILY [facility] Last Admin: 04/18/19 08:19 Dose: 40 mg Furosemide (Lasix) 20 mg IVPUSH ONETIME ONE Stop: 04/16/19 15:01 Last Admin: 04/16/19 15:36 Dose: 20 mg Furosemide (Lasix) 40 mg IVPUSH ONETIME ONE Stop: 04/17/19 15:01 Last Admin: 04/17/19 15:42 Dose: 40 mg Hydralazine HCl (Apresoline) 25 mg PO Q8H [facility] Last Admin: 04/15/19 05:33 Dose: 25 mg Influenza Virus Vaccine (Pharmacy To Dose - Influenza Vaccine) 1 each IM ONETIME ONE Stop: 04/14/19 20:39 Influenza Virus Vaccine (Fluzone High-Dose 2018- Syringe) 180 mcg IM .ONCE ONE Stop: 04/14/19 21:01 Isosorbide Dinitrate (Isordil) 10 mg PO Q8H [facility] Last Admin: 04/15/19 05:32 Dose: 10 mg Isosorbide Dinitrate (Isordil) 10 mg PO ONETIME ONE Stop: 04/14/19 22:01 Last Admin: 04/14/19 21:38 Dose: 10 mg Methylprednisolone Sodium Succinate (Solu-Medrol) 60 mg IVPUSH ONETIME ONE Stop: 04/17/19 21:16 Last Admin: 04/17/19 21:19 Dose: 60 mg Potassium Chloride (Klor-Con M20) 40 meq PO ONETIME ONE Stop: 04/17/19 08:18 Last Admin: 04/17/19 08:44 Dose: 40 meq Spironolactone (Aldactone) 12.5 mg PO ONETIME ONE Stop: 04/15/19 14:14 Last Admin: 04/15/19 14:34 Dose: 12.5 mg - Exam Quality Assessment: Supplemental Oxygen General: Alert, Oriented HEENT: Pupils Equal, Pupils Reactive, EOMI, Mucous Membr. Moist/[place] Neck: Supple Lungs: Clear to Auscultation, Normal Respiratory Effort Cardiovascular: Regular Rate, Regular Rhythm Extremities: Normal Inspection, Pedal Edema (1+), Other (LE stasis dermatitis) - Problem List Review Problem List Initiated/Reviewed/Updated: Yes - My Orders Last 24 Hours: My Active Orders 04/19/19 09:00 Furosemide [Lasix] 40 mg PO DAILY 04/24/19 20:00 Oxygen Therapy [RC] ASDIRECTED - Plan Plan:: Assessment * New onset CHF (HFpEF) * likely secondary to obesity, hypertension, and sleep-disordered breathing. * good urine output and 20+ pound weight loss. * Increased bicarb suggest contraction metabolic alkalosis 2/2 aggressive diuresis. * BNP down from over 1300 to 145. * ECG NSR rate 87. No abnormal findings. * echocardiogram from 04/13/2019: technically suboptimal study. * left ventricle was not well visualized. * The left ventricular ejection fraction is 55-59%, with normal systolic function. This is an estimate. * Left ventricular disc diastolic filling is grade 2 diastolic dysfunction by spectral Doppler. * Aortic valve - no aortic valve stenosis by spectral Doppler. * There is an aortic aneurysm located in the ascending aorta kelvin * the IVC is normal in size with greater than 50% respirophasic collapse suggesting an RA pressure of 0-5 mmHg * ascending aortic aneurysm measuring 4.1 cm * Appointment with cardiology to be scheduled * Hypoxemia * On 6 L nasal cannula sPO2 approximately 89% * He gives history of possible chronic hypoxemia, which is strengthened based on his compensated respiratory acidosis * CT chest: Elevated right hemidiaphragm causing mild compressive type atelectasis within the right lung base. Otherwise, nothing acute. * Chronic renal insufficiency * Old records demonstrate estimated GFR of 51 in June and February of this year * Morbid obesity * BMI 49 * Hypertension * history of metoprolol tartrate 25 mg twice a day, but current med list does not have him taking it. * No current IZZY inhibitor or ARB * Started spironolactone * Sleep apnea * On CPAP at home, but not sure of pressure but thinks it's 10 * Stasis dermatitis * Confirms that he has chronic lower extremity edema * Hypokalemia 2/2 diuresis * BPH * On tamsulosin Plan * Admit to medical floor on telemetry * Continue BiPAP with pressures as tolerated * Decrease rate of diuresis * Lasix 40 mg PO given this morning * Diamox 250 mg daily. Likely will not need to go home on Diamox * DuoNeb QID with EzPAP * Incentive spirometry. * We will not start an IZZY inhibitor or ARB secondary to renal insufficiency at this time but may benefit from it in the future * Spironolactone 12.5 mg by mouth. * consider stress test/cardiology consult as outpatient * Monitor CBC, CMP, and magnesium * VTE prophylaxis with Lovenox. He will require 40 mg twice a day secondary to his morbid obesity * CODE STATUS: Full code * Length of stay > 96 hours due to slow improvement of oxygenation. * Plan discharge for tomorrow.
[2019-04-20] MEDS: methylPREDNISolone Sodium Succinate 40 MG/1 ML SDV IVPUSH SCH ×2 (03:57→09:00)
[2019-04-20] MEDS: Albuterol/Ipratropium 3.0-0.5 MG/3 ML Neb Soln NEB SCH ×2 (06:07→11:36)
[2019-04-20] MEDS: Pantoprazole 40 MG Tab.CR PO SCH (06:19)
[2019-04-20 08:52] VITALS: BP 154/74
[2019-04-20] MEDS: Furosemide 40 MG Tab PO SCH (08:54)
[2019-04-20] MEDS: Citalopram 20 MG Tab PO SCH (08:55)
[2019-04-20] MEDS: Tamsulosin 0.4 MG Cap.ER PO SCH (08:55)
[2019-04-20] MEDS: Aspirin 81 MG Tab.EC PO SCH (08:55)
[2019-04-20] MEDS: acetaZOLAMIDE 250 MG Tab PO SCH (08:55)
[2019-04-20] MEDS: Spironolactone 25 MG Tab PO SCH (08:56)
[2019-04-20] MEDS: Enoxaparin 40 MG/0.4 ML Syringe SUBCUT SCH (08:57)
--- NOTE | 2019-04-20 09:55 | PCM.DCSUM1 ---
Discharge Summary - Hospital Course Brief History: 54-year-old male who presented from [facility] with increasing shortness of breath and hypoxia. Patient states over the last 6 weeks he has had worsening shortness of breath. Patient presented to [facility] at that time and was started on nebulizers. Patient had some mild improvement but then was sent to [facility] emergency room on Halloween and they did relatively full evaluation which included a CT pulmonary angiogram to rule out PE. An echocardiogram was performed yesterday. Patient denies any orthopnea but does have PND. Today patient was at a follow-up appointment and his provider referred him to the emergency room because of worsening shortness of breath and weight gain. Patient states he has gained approximately 20 pounds over the last 6 weeks. He feels like it is mostly gone into his abdomen, but his provider felt there was increased swelling in his legs. Patient stopped smoking 15 years ago. He appears to have mild COPD. He's had no cough, chills, or fever. Patient has only a few step dyspnea on exertion. When the patient arrived to the emergency room his oxygen saturations were 67% after walking to his room. In the emergency room his initial blood pressure was 167 or 100 with respiratory rate of 25. EKG showed normal sinus rhythm with essentially normal EKG. It is not available for me to see at this time. Chest x-ray showed cardiomegaly with pulmonary vascular congestion. Patient was then given Lasix 60 mg IV with good results. He currently states he has much less shortness of breath. Emergency room laboratory studies: WBC 9.53, hemoglobin 16.1, platelets 194, sodium 145, chloride 107, potassium 4.4, carbon dioxide 35, BUN 35, creatinine 1.6, proBNP 1389, troponin 0.047. Diagnosis: Stroke: No - Discharge Data Discharge Date: 04/20/19 Discharge Disposition: Home, Self-Care 01 Condition: Good - Referral to Home Health Primary Care Physician: Sofia Otto PA-C - Discharge Diagnosis/Problem(s) (1) Hypoxemia requiring supplemental oxygen SNOMED Code(s): 854925988 ICD Code: R09.02 - HYPOXEMIA; Z99.81 - DEPENDENCE ON SUPPLEMENTAL OXYGEN Status: Acute Current Visit: Yes (2) Congestive heart failure SNOMED Code(s): 15641017 ICD Code: I50.9 - HEART FAILURE, UNSPECIFIED Status: Acute Current Visit : Yes Qualifiers: Heart failure chronicity: acute on chronic (3) Obesity SNOMED Code(s): 640667694, 715754602 ICD Code: E66.9 - OBESITY, UNSPECIFIED Status: Acute Current Visit: Yes Qualifiers: Obesity type: unspecified obesity type Serious obesity comorbidity presence : with serious comorbidity Body mass index: BMI 50.0-59.9 (4) Renal insufficiency SNOMED Code(s): 785488720, 263891292 ICD Code: N28.9 - DISORDER OF KIDNEY AND URETER, UNSPECIFIED Status: Acute Current Visit: Yes - Patient Summary/Data Hospital Course: Espinoza was admitted with a diagnosis of hypoxemia requiring 6 L nasal cannula O2 secondary to congestive heart failure. [facility] showed grade 2 diastolic dysfunction. BNP decreased from over 1300 to 145. Patient also was noted to have chronic renal insufficiency with an estimated GFR in the 40s placing him at stage III. This was consistent throughout hospitalization although it did worsen a little bit with diuresis. Patient was also noted to have some metabolic alkalosis which was treated with Diamox and improved at the end of his hospitalization. Diamox was stopped at discharge. With this patient still had significant oxygen need with pulse ox in the low 90s to upper 80s on 6 L. BiPAP was then started with pressures of 16/10 and this made a significant improvement dropping his oxygen requirement to 2 L. Patient will be discharged home on 2 L nasal cannula. He will follow-up with his primary care provider and may benefit from repeat sleep study to get BiPAP at home. It was felt that the patient's hypoxemia and congestive heart failure was multifactorial. It includes obesity, heart failure with preserved ejection fraction, sleep disordered breathing, hypertension, and mild COPD. Patient was placed on spironolactone 12.5 mg for his grade 2 diastolic dysfunction found on echo. This may be increased to 25 mg. He will continue on Lasix 20 mg a day and this should be adjusted according to his weight and symptoms. - Patient Instructions Diet: Heart Healthy Diet Activity: As Tolerated Driving: May Drive Today Showering/Bathing: May Shower Other/Special Instructions: Follow up with your PCP early next week. You will need a BMP and to discuss a new sleep study and possible BiPAP. - Discharge Plan *PRESCRIPTION DRUG MONITORING PROGRAM REVIEWED*: No *COPY OF PRESCRIPTION DRUG MONITORING REPORT IN PATIENT MARIANA: No Prescriptions/Med Rec: Albuterol [Ventolin HFA] 2 puff .XX Q4H PRN #1 inhaler PRN Reason: Shortness Of Breath predniSONE [Prednisone] 20 mg PO DAILY #2 tablet Spironolactone [Aldactone] 12.5 mg PO DAILY #30 tablet Home Medications: Home Meds Furosemide 20 mg PO DAILY 01/17/15 [History] Omeprazole 20 mg PO DAILY 01/17/15 [History] Tamsulosin HCl 0.4 mg PO DAILY 01/17/15 [History] Aspirin [Mariusz Chewable Aspirin] 81 mg PO DAILY 04/14/19 [History] Escitalopram [Lexapro] 10 mg PO DAILY 04/14/19 [History] Albuterol [Ventolin HFA] 2 puff .XX Q4H PRN #1 inhaler 04/20/19 [Rx] Spironolactone [Aldactone] 12.5 mg PO DAILY #30 tablet 04/20/19 [Rx] predniSONE [Prednisone] 20 mg PO DAILY #2 tablet 04/20/19 [Rx] Oxygen Therapy Mode: Nasal Cannula Oxygen Flow Rate (L/min): 2 Maintain SpO2% greater than: 90 Patient Handouts: Chronic Obstructive Pulmonary Disease, Heart Failure Action Plan, Heart Failure Forms: ED Department Discharge Referrals: Sofia Otto PA-C [Primary Care Provider] - Tabatha Gordillo MD [Physician] - 06/21/19 1:25 pm (Cardiology appointment.) - Discharge Summary/Plan Comment DC Time >30 min.: Yes Discharge Summary/Plan Comment: Patient was placed on spironolactone 12.5 mg for his grade 2 diastolic dysfunction found on echo. This may be increased to 25 mg. He will continue on Lasix 20 mg a day and this should be adjusted according to his weight and symptoms. He will need a CMP early next week and follow-up with primary care provider. Patient may also benefit from repeat sleep study for evaluation of BiPAP. He will be discharged home on 2 L nasal cannula oxygen, prednisone 20 mg daily 2 days, and albuterol inhaler 2 puffs every 4 hours when necessary shortness of breath to be used with a spacer. - General Info Date of Service: 04/20/19 Admission Dx/Problem (Free Text: Admission Diagnosis/Problem Admission Diagnosis/Problem CHF, Congestive heart failure Subjective Update: Doing well. No shortness of breath. Functional Status: Reports: Pain Controlled - Review of Systems General: Reports: No Symptoms HEENT: Reports: No Symptoms Pulmonary: Reports: No Symptoms Cardiovascular: Reports: No Symptoms Gastrointestinal: Reports: No Symptoms Musculoskeletal: Reports: No Symptoms - Patient Data Vitals - Most Recent: Last Vital Signs Temp 97.5 F 04/20/19 07:42 Pulse 73 04/20/19 07:42 Resp 24 H 04/20/19 03:59 BP 154/74 H 04/20/19 07:42 Pulse Ox 90 L 04/20/19 07:42 Weight - Most Recent: 368 lb I&O - Last 24 hours: Intake & Output 04/19/19 04/20/19 04/20/19 22:59 06:59 14:59 Intake Total 1200 700 Output Total 1050 Balance 1200 -350 Lab Results - Last 24 hrs: Laboratory Results - last 24 hr 04/20/19 Range/Units 04:50 Sodium 138 (136-145) mEq/L Potassium 4.3 (3.5-5.1) mEq/L Chloride 97 L (98-107) mEq/L Carbon Dioxide 31 (21-32) mEq/L Anion Gap 14.3 (5-15) BUN 53 H (7-18) mg/dL Creatinine 1.8 H (0.7-1.3) mg/dL Est Cr Clr Drug Dosing 46.24 mL/min Estimated GFR (MDRD) 38 (>60) mL/min BUN/Creatinine Ratio 29.4 H (14-18) Glucose 147 H (80-115) mg/dL Calcium 9.3 (8.5-10.1) mg/dL Med Orders - Current: Current Medications Acetaminophen (Tylenol) 650 mg PO Q4H PRN PRN Reason: Pain/Fever Last Admin: 04/15/19 05:22 Dose: 650 mg Acetazolamide (Diamox) 250 mg PO DAILY [facility] Last Admin: 04/20/19 08:55 Dose: 250 mg Albuterol/Ipratropium (Duoneb 3.0-0.5 Mg/3 Ml) 3 ml NEB Q6HR [facility] Last Admin: 04/20/19 06:07 Dose: 3 ml Aspirin (Halfprin) 81 mg PO DAILY [facility] Last Admin: 04/20/19 08:55 Dose: 81 mg Calcium Carbonate/Glycine (Tums) 1,000 mg PO Q2H PRN PRN Reason: Indigestion Last Admin: 04/15/19 10:35 Dose: 1,000 mg Citalopram Hydrobromide (Celexa) 20 mg PO DAILY [facility] Last Admin: 04/20/19 08:55 Dose: 20 mg Cyclobenzaprine HCl (Flexeril) 10 mg PO TID PRN PRN Reason: Muscle Spasm Enoxaparin Sodium (Lovenox) 40 mg SUBCUT BID [facility] Last Admin: 04/20/19 08:57 Dose: 40 mg Furosemide (Lasix) 40 mg PO DAILY [facility] Last Admin: 04/20/19 08:54 Dose: 40 mg Methylprednisolone Sodium Succinate (Solu-Medrol) 60 mg IVPUSH Q6H [facility] Last Admin: 04/20/19 09:00 Dose: 60 mg Pantoprazole Sodium (Protonix) 40 mg PO ACBREAKFAST [facility] Last Admin: 04/20/19 06:19 Dose: 40 mg Sodium Chloride (Saline Flush) 10 ml FLUSH ASDIRECTED PRN PRN Reason: Keep Vein Open Last Admin: 04/14/19 15:42 Dose: 10 ml Spironolactone (Aldactone) 12.5 mg PO DAILY [facility] Last Admin: 04/20/19 08:56 Dose: 12.5 mg Tamsulosin HCl (Flomax) 0.4 mg PO DAILY [facility] Last Admin: 04/20/19 08:55 Dose: 0.4 mg Discontinued Medications Albuterol/Ipratropium (Duoneb 3.0-0.5 Mg/3 Ml) 3 ml NEB Q4HRRT [facility] Stop: 04/16/19 18:01 Last Admin: 04/16/19 18:48 Dose: 3 ml Albuterol/Ipratropium (Duoneb 3.0-0.5 Mg/3 Ml) 3 ml NEB Q6HR [facility] Last Admin: 04/16/19 10:56 Dose: Not Given Furosemide (Lasix) 60 mg IVPUSH NOW ONE Stop: 04/14/19 16:29 Last Admin: 04/14/19 16:40 Dose: 60 mg Furosemide (Lasix) 60 mg IVPUSH QAM [facility] Last Admin: 04/15/19 08:13 Dose: 60 mg Furosemide (Lasix) 40 mg IVPUSH NOW ONE Stop: 04/15/19 14:14 Last Admin: 04/15/19 14:34 Dose: 40 mg Furosemide (Lasix) 40 mg IVPUSH DAILY [facility] Last Admin: 04/18/19 08:19 Dose: 40 mg Furosemide (Lasix) 20 mg IVPUSH ONETIME ONE Stop: 04/16/19 15:01 Last Admin: 04/16/19 15:36 Dose: 20 mg Furosemide (Lasix) 40 mg IVPUSH ONETIME ONE Stop: 04/17/19 15:01 Last Admin: 04/17/19 15:42 Dose: 40 mg Hydralazine HCl (Apresoline) 25 mg PO Q8H [facility] Last Admin: 04/15/19 05:33 Dose: 25 mg Influenza Virus Vaccine (Pharmacy To Dose - Influenza Vaccine) 1 each IM ONETIME ONE Stop: 04/14/19 20:39 Influenza Virus Vaccine (Fluzone High-Dose 2019-20 Syringe) 180 mcg IM .ONCE ONE Stop: 04/14/19 21:01 Isosorbide Dinitrate (Isordil) 10 mg PO Q8H [facility] Last Admin: 04/15/19 05:32 Dose: 10 mg Isosorbide Dinitrate (Isordil) 10 mg PO ONETIME ONE Stop: 04/14/19 22:01 Last Admin: 04/14/19 21:38 Dose: 10 mg Methylprednisolone Sodium Succinate (Solu-Medrol) 60 mg IVPUSH ONETIME ONE Stop: 04/17/19 21:16 Last Admin: 04/17/19 21:19 Dose: 60 mg Potassium Chloride (Klor-Con M20) 40 meq PO ONETIME ONE Stop: 04/17/19 08:18 Last Admin: 04/17/19 08:44 Dose: 40 meq Spironolactone (Aldactone) 12.5 mg PO ONETIME ONE Stop: 04/15/19 14:14 Last Admin: 04/15/19 14:34 Dose: 12.5 mg - Exam Quality Assessment: Reports: Supplemental Oxygen General: Reports: Alert, Oriented HEENT: Reports: Pupils Equal Neck: Reports: Supple Lungs: Reports: Clear to Auscultation, Normal Respiratory Effort Cardiovascular: Reports: Regular Rate, Regular Rhythm GI/Abdominal Exam: Normal Bowel Sounds, Soft, Non-Tender Back Exam: Reports: Normal Inspection Extremities: Normal Inspection, Pedal Edema (1+ bilateral) Skin: Reports: Warm, Dry, Intact, Other (Status dermatitis.) Neurological: Reports: No New Focal Deficit Psy/Mental Status: Reports: Alert, Normal Affect, Normal Mood
[2019-04-20 12:54] VITALS: PULSE 86
== END 2019-04-20 12:07 | disposition home or self-care (01) | DRG 291 ==
LOC: JD.ED 15:23 → JD.MS 17:15
PROVIDERS: ADMIT Family Medicine; ATTEND Family Medicine
PROC: 5A09457 Assistance with Respiratory Ventilation, 24-96 Consecutive Hours, Continuous Positive Airway Pressure (ICD-10-PCS; principal; 2019-04-18)
PROC: 3E02340 Introduction of Influenza Vaccine into Muscle, Percutaneous Approach (ICD-10-PCS; 2019-04-20)
DX: I11.0 Hypertensive heart disease with heart failure (principal); I50.9 Heart failure, unspecified; N28.9 Disorder of kidney and ureter, unspecified; I48.91 Unspecified atrial fibrillation; I13.0 Hypertensive heart and chronic kidney disease with heart failure and stage 1 through stage 4 chronic kidney disease, or unspecified chronic kidney disease; I50.33 Acute on chronic diastolic (congestive) heart failure; Z68.43 Body mass index [BMI] 50.0-59.9, adult; N18.3 Chronic kidney disease, stage 3 (moderate); E66.8 Other obesity; E66.01 Morbid (severe) obesity due to excess calories; E78.00 Pure hypercholesterolemia, unspecified; J44.9 Chronic obstructive pulmonary disease, unspecified; G47.30 Sleep apnea, unspecified; K21.9 Gastro-esophageal reflux disease without esophagitis; N40.0 Benign prostatic hyperplasia without lower urinary tract symptoms; I87.2 Venous insufficiency (chronic) (peripheral); D64.9 Anemia, unspecified; R16.0 Hepatomegaly, not elsewhere classified; I71.2 Thoracic aortic aneurysm, without rupture; Z87.891 Personal history of nicotine dependence; Z79.82 Long term (current) use of aspirin; Z79.899 Other long term (current) drug therapy; Z90.49 Acquired absence of other specified parts of digestive tract; Z23 Encounter for immunization
CPT/HCPCS: 36415; 71045; 80053; 83880; 84484; 85025; 85610; 93005; 96374; 99285; J1940; 36600; 71046; 71046-26; 71250; 71250-26; 76705; 76705-26; 80048; 82803; 83735; 85379; 90662; 93010; 94640; 94660; 94668; 94760; 94761; 99284; A9270-GY; G0008; J1650; J2920; J7620-GY

== ENCOUNTER 2021-07-25 11:05 | Inpatient (IN) | payer MEDICARE, OTHER ==
[2021-07-25] MEDS ORDERED: Sodium Chloride 0.9% 10 ML Syringe FLUSH PRN (11:21)
[2021-07-25] MEDS ORDERED: Furosemide 40 MG/4 ML VIAL IVPUSH ONE ×2 (12:43→14:55)
[2021-07-25 13:09] LABS: CORONAVIRUS COVID-19 NAA NEGATIVE (NEGATIVE)
[2021-07-25] MEDS ORDERED: Ondansetron 4 MG/2 ML SDV IV PRN (14:52)
[2021-07-25] MEDS ORDERED: Albuterol 0.083% 2.5 MG/3 ML Neb Soln NEB PRN (14:52)
[2021-07-25] MEDS ORDERED: Acetaminophen 325 MG Tab PO PRN (14:52)
[2021-07-25] MEDS: methylPREDNISolone Sodium Succinate 40 MG/1 ML SDV IVPUSH SCH (17:44)
[2021-07-25] MEDS ORDERED: Albuterol 6.7 GM Inhaler INH PRN (18:57)
[2021-07-25] MEDS: Latanoprost 0.005% Ophth Soln 2.5 ML Bottle EYEBOTH SCH (20:45)
[2021-07-25] MEDS: Apixaban 5 MG Tab PO SCH (20:45)
[2021-07-25] MEDS: Doxycycline 100 MG in Sodium Chloride 0.9% 100 ML IV SCH (20:46)
[2021-07-26] MEDS: Pantoprazole 40 MG Tab.CR PO SCH (06:04)
[2021-07-26] MEDS: methylPREDNISolone Sodium Succinate 40 MG/1 ML SDV IVPUSH SCH ×2 (06:05→18:00)
[2021-07-26] MEDS: Apixaban 5 MG Tab PO SCH ×2 (08:34→21:24)
[2021-07-26] MEDS: Spironolactone 25 MG Tab PO SCH (08:34)
[2021-07-26] MEDS: Citalopram 20 MG Tab PO SCH (08:34)
[2021-07-26] MEDS: Tamsulosin 0.4 MG Cap.ER PO SCH (08:34)
[2021-07-26] MEDS: Doxycycline 100 MG in Sodium Chloride 0.9% 100 ML IV SCH ×2 (08:35→21:25)
[2021-07-26] MEDS ORDERED: Furosemide 40 MG/4 ML VIAL IVPUSH ONE (09:16)
[2021-07-26] MEDS: Furosemide 40 MG/4 ML VIAL IVPUSH SCH (15:01)
[2021-07-26] MEDS: Formoterol/Mometasone 100-5 MCG 8.8 GM Inhaler IH SCH ×2 (19:13→21:00)
[2021-07-26] MEDS: Latanoprost 0.005% Ophth Soln 2.5 ML Bottle EYEBOTH SCH (21:25)
[2021-07-27] MEDS: Furosemide 40 MG/4 ML VIAL IVPUSH SCH (06:04)
[2021-07-27] MEDS: methylPREDNISolone Sodium Succinate 40 MG/1 ML SDV IVPUSH SCH (06:04)
[2021-07-27] MEDS: Pantoprazole 40 MG Tab.CR PO SCH (06:04)
[2021-07-27 08:04] VITALS: BP 158/79; PULSE 76
[2021-07-27] MEDS: Citalopram 20 MG Tab PO SCH (08:35)
[2021-07-27] MEDS: Apixaban 5 MG Tab PO SCH (08:35)
[2021-07-27] MEDS: Tamsulosin 0.4 MG Cap.ER PO SCH (08:35)
[2021-07-27] MEDS: Spironolactone 25 MG Tab PO SCH (08:35)
[2021-07-27] MEDS: Doxycycline 100 MG in Sodium Chloride 0.9% 100 ML IV SCH (08:36)
[2021-07-27] MEDS: Formoterol/Mometasone 100-5 MCG 8.8 GM Inhaler IH SCH (10:09)
== END 2021-07-27 12:35 | disposition home or self-care (01) | DRG 292 ==
LOC: JD.ED 11:05 → JD.MS 15:09 → JD.ED 15:09 → JD.MS 15:19
PROVIDERS: ADMIT Family Medicine; ATTEND Family Medicine
DX: I13.0 Hypertensive heart and chronic kidney disease with heart failure and stage 1 through stage 4 chronic kidney disease, or unspecified chronic kidney disease (principal); J44.1 Chronic obstructive pulmonary disease with (acute) exacerbation; E78.00 Pure hypercholesterolemia, unspecified; I10 Essential (primary) hypertension; N17.9 Acute kidney failure, unspecified; L97.819 Non-pressure chronic ulcer of other part of right lower leg with unspecified severity; I11.0 Hypertensive heart disease with heart failure; I50.9 Heart failure, unspecified; Z98.49 Cataract extraction status, unspecified eye; Z20.822 Contact with and (suspected) exposure to COVID-19; N18.30 Chronic kidney disease, stage 3 unspecified; I48.91 Unspecified atrial fibrillation; E78.5 Hyperlipidemia, unspecified; K21.9 Gastro-esophageal reflux disease without esophagitis; J44.9 Chronic obstructive pulmonary disease, unspecified; I87.2 Venous insufficiency (chronic) (peripheral); N40.0 Benign prostatic hyperplasia without lower urinary tract symptoms; G47.33 Obstructive sleep apnea (adult) (pediatric); Z79.899 Other long term (current) drug therapy; Z79.52 Long term (current) use of systemic steroids; Z79.2 Long term (current) use of antibiotics; Z97.3 Presence of spectacles and contact lenses; Z99.81 Dependence on supplemental oxygen; Z97.2 Presence of dental prosthetic device (complete) (partial); Z79.01 Long term (current) use of anticoagulants; Z86.010 Personal history of colon polyps; Z86.16 Personal history of COVID-19; Z90.89 Acquired absence of other organs; Z90.49 Acquired absence of other specified parts of digestive tract; Z93.3 Colostomy status; Z87.891 Personal history of nicotine dependence
CPT/HCPCS: 0240U; 36415; 71046; 71046-26; 80053; 83605; 83735; 83880; 84484; 85025; 85610; 85730; 87040; 93005; 93010; 94667; 94760; 94761; 96374; 99285; 99285-25; A9270-GY; J1940; J2920; J3490

== ENCOUNTER 2022-01-09 12:01 | Inpatient (IN) | payer MEDICARE, OTHER ==
[2022-01-09] MEDS ORDERED: Sodium Chloride 0.9% 500 ML IV ONE (14:47)
[2022-01-09] MEDS ORDERED: Sodium Chloride 0.9% 10 ML Syringe FLUSH ONE (14:55)
[2022-01-09] MEDS ORDERED: Iopamidol 755 Mg/ML 100 ML Bottle IVPUSH ONE (14:55)
[2022-01-09] MEDS ORDERED: Sodium Chloride 0.9% 100 ML IV SCH (15:00)
[2022-01-09] MEDS ORDERED: Docusate Sodium 100 MG Cap PO PRN (17:20)
[2022-01-09] MEDS ORDERED: Ondansetron 4 MG Tab.DIS PO PRN (17:20)
[2022-01-09] MEDS ORDERED: Acetaminophen 325 MG Tab PO PRN (17:20)
[2022-01-09] MEDS ORDERED: Ondansetron 4 MG/2 ML SDV IV PRN (17:20)
[2022-01-09] MEDS ORDERED: Sodium Chloride 0.9% 10 ML Syringe FLUSH PRN (17:22)
[2022-01-09] MEDS: Albuterol 6.7 GM Inhaler INH PRN (19:48)
[2022-01-09] MEDS: Furosemide 40 MG/4 ML VIAL IVPUSH SCH (21:24)
[2022-01-09] MEDS: Potassium Chloride 20 MEQ Tab.ER PO SCH (21:24)
[2022-01-09] MEDS: Apixaban 5 MG Tab PO SCH (21:24)
[2022-01-09] MEDS: Triamcinolone Acetonide 0.1% Crm 15 GM Tube TOP SCH (21:26)
[2022-01-10] MEDS: Pantoprazole 40 MG Tab.CR PO SCH (06:32)
[2022-01-10] MEDS: Triamcinolone Acetonide 0.1% Crm 15 GM Tube TOP SCH ×2 (08:10→20:39)
[2022-01-10] MEDS: Albuterol 6.7 GM Inhaler INH PRN ×3 (08:38→20:17)
[2022-01-10] MEDS: Spironolactone 25 MG Tab PO SCH (09:50)
[2022-01-10] MEDS: Tamsulosin 0.4 MG Cap.ER PO SCH (09:50)
[2022-01-10] MEDS: Apixaban 5 MG Tab PO SCH ×2 (09:50→20:38)
[2022-01-10] MEDS: Citalopram 20 MG Tab PO SCH (09:50)
[2022-01-10] MEDS: Furosemide 40 MG/4 ML VIAL IVPUSH SCH ×2 (09:51→14:10)
[2022-01-10] MEDS: Potassium Chloride 20 MEQ Tab.ER PO SCH ×2 (09:51→20:38)
[2022-01-11] MEDS: Albuterol 6.7 GM Inhaler INH PRN (06:06)
[2022-01-11] MEDS: Furosemide 40 MG/4 ML VIAL IVPUSH SCH (06:48)
[2022-01-11] MEDS: Pantoprazole 40 MG Tab.CR PO SCH (06:48)
[2022-01-11] MEDS: Tamsulosin 0.4 MG Cap.ER PO SCH (09:12)
[2022-01-11] MEDS: Citalopram 20 MG Tab PO SCH (09:12)
[2022-01-11] MEDS: Potassium Chloride 20 MEQ Tab.ER PO SCH (09:12)
[2022-01-11] MEDS: Apixaban 5 MG Tab PO SCH (09:12)
[2022-01-11] MEDS: Spironolactone 25 MG Tab PO SCH (09:12)
[2022-01-11] MEDS: Triamcinolone Acetonide 0.1% Crm 15 GM Tube TOP SCH (09:13)
[2022-01-11 11:24] VITALS: BP 138/80; PULSE 66
== END 2022-01-11 11:35 | disposition home or self-care (01) | DRG 291 ==
LOC: JD.ED 12:01 → JD.MS 17:20
PROVIDERS: ADMIT Hospitalist; ATTEND Hospitalist
PROC: 5A09457 Assistance with Respiratory Ventilation, 24-96 Consecutive Hours, Continuous Positive Airway Pressure (ICD-10-PCS; principal; 2022-01-09)
DX: I11.0 Hypertensive heart disease with heart failure (principal); J96.01 Acute respiratory failure with hypoxia; Z68.43 Body mass index [BMI] 50.0-59.9, adult; I50.9 Heart failure, unspecified; I48.91 Unspecified atrial fibrillation; E78.00 Pure hypercholesterolemia, unspecified; E78.5 Hyperlipidemia, unspecified; J44.9 Chronic obstructive pulmonary disease, unspecified; G47.33 Obstructive sleep apnea (adult) (pediatric); Z86.010 Personal history of colon polyps; G47.30 Sleep apnea, unspecified; E66.9 Obesity, unspecified; K21.9 Gastro-esophageal reflux disease without esophagitis; Z90.89 Acquired absence of other organs; Z90.49 Acquired absence of other specified parts of digestive tract; Z86.16 Personal history of COVID-19; Z79.01 Long term (current) use of anticoagulants; Z79.52 Long term (current) use of systemic steroids; Z97.3 Presence of spectacles and contact lenses; Z93.3 Colostomy status; Z99.81 Dependence on supplemental oxygen; Z79.899 Other long term (current) drug therapy; Z20.822 Contact with and (suspected) exposure to COVID-19
CPT/HCPCS: 36415; 71045; 71275; 80053; 83735; 83880; 84484; 85025; 85379; 85610; 85730; 93005; J3490; J7030; Q9967; U0002; 80048; 93306; 94640; 94761; 94762; A9270-GY; J1940

== ENCOUNTER 2023-10-23 14:10 | Inpatient (IN) | payer MEDICARE, OTHER ==
[2023-10-23 14:44] LABS: BASOPHILS PERCENT AUTO 0.3 % (0.0-1.0); EOSINOPHILS ABSOLUTE AUTO 0.2 K/mm3 (0.0-0.4); EOSINOPHILS PERCENT AUTO 2.6 % (0.0-6.0); HEMATOCRIT 44.3 % (42.0-52.0); HEMOGLOBIN 13.7 gm/dl (14.0-18.0); IMMATURE GRAN ABSOLUTE AUTO 0.01 K/mm3 (0.00-0.05); IMMATURE GRAN PERCENT AUTO 0.1 % (0.0-0.4); LYMPHOCYTES PERCENT AUTO 12.4 % (24.0-44.0); MEAN CORPUSCULAR HEMOGLOBIN 29.7 pg (28.0-32.0); MEAN CORPUSCULAR HGB CONC 30.9 g/dl (32.0-36.0); MEAN CORPUSCULAR VOLUME 95.9 fl (83.0-99.0); MEAN PLATELET VOLUME 10.4 fl (9.4-12.4); MONOCYTES ABSOLUTE AUTO 1.1 K/mm3 (0.0-0.8); MONOCYTES PERCENT AUTO 13.7 % (0.0-8.0); NEUTROPHILS ABSOLUTE AUTO 5.5 K/mm3 (1.8-7.7); NEUTROPHILS PERCENT AUTO 70.9 % (41.0-71.0); PLATELET COUNT,PLT 163 K/mm3 (150-400); RED BLOOD CELL COUNT 4.62 M/mm3 (4.52-5.90); WHITE BLOOD CELL COUNT,WBC 7.69 K/mm3 (3.9-11.3)
[2023-10-23 15:04] LABS: A/G RATIO 0.8 (1-2); ALBUMIN 3.3 g/dl (3.4-5.0); ANION GAP 9.9 (5-15); BILIRUBIN TOTAL 1.4 mg/dL (0.2-1.0); BUN/CREATININE RATIO 16.9 (14-18); CALCIUM 9.4 mg/dL (8.5-10.1); CREATININE 1.3 mg/dL (0.7-1.3); EST CRCL DRUG DOSING (CG) 62.35 mL/min; POTASSIUM,K 3.9 mEq/L (3.5-5.1); PROTEIN TOTAL,TP 7.3 g/dl (6.4-8.2)
[2023-10-23 15:39] LABS: CORONAVIRUS COVID-19 NAA NEGATIVE (NEGATIVE); INFLUENZA A NAA NEGATIVE (NEGATIVE); RESPIRATORY SYNCYTIAL VIR NAA NEGATIVE (NEGATIVE)
[2023-10-23] MEDS: Furosemide 40 MG/4 ML VIAL IVPUSH ONE (15:48)
[2023-10-23] MEDS: Iopamidol 755 Mg/ML 100 ML Bottle IVPUSH ONE (16:32)
[2023-10-23] MEDS: Sodium Chloride 0.9% 10 ML Syringe FLUSH PRN (16:33)
[2023-10-23] MEDS: Iopamidol 755 MG/ML 50 ML Bottle IVPUSH ONE (16:33)
[2023-10-23] MEDS ORDERED: Temazepam 7.5 MG Cap PO PRN (16:43)
[2023-10-23] MEDS ORDERED: Sodium Chloride 0.9% 10 ML Syringe FLUSH PRN (16:43)
[2023-10-23] MEDS ORDERED: Albuterol 6.7 GM Inhaler INH PRN (17:00)
[2023-10-23] MEDS: cefTRIAXone 2 GM in Sodium Chloride 0.9% 100 ML IV SCH (18:25)
[2023-10-23] MEDS: Formoterol/Mometasone 200-5 MCG 8.8 GM Inhaler INH SCH (20:03)
[2023-10-23] MEDS: Bumetanide 1 MG Tab PO SCH (20:36)
[2023-10-23] MEDS: Apixaban 5 MG Tab PO SCH (20:36)
[2023-10-23] MEDS: Potassium Chloride 20 MEQ Tab.ER PO SCH (20:36)
[2023-10-24] MEDS: Acetaminophen 325 MG Tab PO PRN (02:45)
[2023-10-24 04:52] LABS: BASOPHILS PERCENT AUTO 0.3 % (0.0-1.0); EOSINOPHILS ABSOLUTE AUTO 0.2 K/mm3 (0.0-0.4); EOSINOPHILS PERCENT AUTO 1.4 % (0.0-6.0); HEMATOCRIT 40.9 % (42.0-52.0); HEMOGLOBIN 12.6 gm/dl (14.0-18.0); IMMATURE GRAN ABSOLUTE AUTO 0.04 K/mm3 (0.00-0.05); IMMATURE GRAN PERCENT AUTO 0.4 % (0.0-0.4); LYMPHOCYTES ABSOLUTE AUTO 0.9 K/mm3 (1.0-4.8); MEAN CORPUSCULAR HEMOGLOBIN 29.2 pg (28.0-32.0); MEAN CORPUSCULAR HGB CONC 30.8 g/dl (32.0-36.0); MEAN CORPUSCULAR VOLUME 94.9 fl (83.0-99.0); MEAN PLATELET VOLUME 10.7 fl (9.4-12.4); MONOCYTES ABSOLUTE AUTO 1.6 K/mm3 (0.0-0.8); MONOCYTES PERCENT AUTO 14.5 % (0.0-8.0); NEUTROPHILS ABSOLUTE AUTO 8.3 K/mm3 (1.8-7.7); NEUTROPHILS PERCENT AUTO 75.4 % (41.0-71.0); PLATELET COUNT,PLT 171 K/mm3 (150-400); RED BLOOD CELL COUNT 4.31 M/mm3 (4.52-5.90); WHITE BLOOD CELL COUNT,WBC 10.96 K/mm3 (3.9-11.3)
[2023-10-24 05:29] LABS: SLIDE REVIEW ABNORMAL SMEAR
[2023-10-24 05:36] LABS: A/G RATIO 0.8 (1-2); ALBUMIN 3.1 g/dl (3.4-5.0); ANION GAP 9.6 (5-15); BILIRUBIN TOTAL 1.3 mg/dL (0.2-1.0); BUN/CREATININE RATIO 12.9 (14-18); CALCIUM 8.8 mg/dL (8.5-10.1); CREATININE 1.4 mg/dL (0.7-1.3); EST CRCL DRUG DOSING (CG) 57.9 mL/min; MAGNESIUM 1.9 mg/dL (1.8-2.4); POTASSIUM,K 3.6 mEq/L (3.5-5.1); PROTEIN TOTAL,TP 6.8 g/dl (6.4-8.2)
[2023-10-24] MEDS: Pantoprazole 40 MG Tab.CR PO SCH (06:16)
[2023-10-24] MEDS: Magnesium Sulfate/Water 2 GM in Premix Bag 1 BAG IV ONE (08:05)
[2023-10-24] MEDS: Citalopram 20 MG Tab PO SCH (08:06)
[2023-10-24] MEDS: Spironolactone 25 MG Tab PO SCH (08:06)
[2023-10-24] MEDS: Tamsulosin 0.4 MG Cap.ER PO SCH (08:06)
[2023-10-25 05:47] LABS: A/G RATIO 0.8 (1-2); ANION GAP 10.6 (5-15); BILIRUBIN TOTAL 1.5 mg/dL (0.2-1.0); CALCIUM 9.1 mg/dL (8.5-10.1); CREATININE 1.5 mg/dL (0.7-1.3); EST CRCL DRUG DOSING (CG) 54.04 mL/min; POTASSIUM,K 3.6 mEq/L (3.5-5.1)
[2023-10-25 05:56] LABS: BASOPHILS PERCENT AUTO 0.3 % (0.0-1.0); EOSINOPHILS ABSOLUTE AUTO 0.1 K/mm3 (0.0-0.4); EOSINOPHILS PERCENT AUTO 1.2 % (0.0-6.0); HEMATOCRIT 41.4 % (42.0-52.0); HEMOGLOBIN 13.1 gm/dl (14.0-18.0); IMMATURE GRAN ABSOLUTE AUTO 0.04 K/mm3 (0.00-0.05); IMMATURE GRAN PERCENT AUTO 0.3 % (0.0-0.4); LYMPHOCYTES ABSOLUTE AUTO 0.9 K/mm3 (1.0-4.8); LYMPHOCYTES PERCENT AUTO 7.2 % (24.0-44.0); MEAN CORPUSCULAR HEMOGLOBIN 30.1 pg (28.0-32.0); MEAN CORPUSCULAR HGB CONC 31.6 g/dl (32.0-36.0); MEAN CORPUSCULAR VOLUME 95.2 fl (83.0-99.0); MEAN PLATELET VOLUME 10.8 fl (9.4-12.4); MONOCYTES ABSOLUTE AUTO 1.7 K/mm3 (0.0-0.8); MONOCYTES PERCENT AUTO 14.3 % (0.0-8.0); NEUTROPHILS ABSOLUTE AUTO 9.2 K/mm3 (1.8-7.7); NEUTROPHILS PERCENT AUTO 76.7 % (41.0-71.0); PLATELET COUNT,PLT 177 K/mm3 (150-400); RED BLOOD CELL COUNT 4.35 M/mm3 (4.52-5.90)
[2023-10-25 06:17] LABS: SLIDE REVIEW ABNORMAL SMEAR
[2023-10-26 05:36] LABS: BASOPHILS PERCENT AUTO 0.2 % (0.0-1.0); EOSINOPHILS ABSOLUTE AUTO 0.1 K/mm3 (0.0-0.4); EOSINOPHILS PERCENT AUTO 1.1 % (0.0-6.0); IMMATURE GRAN ABSOLUTE AUTO 0.03 K/mm3 (0.00-0.05); IMMATURE GRAN PERCENT AUTO 0.3 % (0.0-0.4); LYMPHOCYTES ABSOLUTE AUTO 0.8 K/mm3 (1.0-4.8); LYMPHOCYTES PERCENT AUTO 7.3 % (24.0-44.0); MEAN CORPUSCULAR HEMOGLOBIN 29.5 pg (28.0-32.0); MEAN CORPUSCULAR VOLUME 95.2 fl (83.0-99.0); MEAN PLATELET VOLUME 10.4 fl (9.4-12.4); MONOCYTES ABSOLUTE AUTO 1.5 K/mm3 (0.0-0.8); MONOCYTES PERCENT AUTO 13.7 % (0.0-8.0); NEUTROPHILS ABSOLUTE AUTO 8.3 K/mm3 (1.8-7.7); NEUTROPHILS PERCENT AUTO 77.4 % (41.0-71.0); PLATELET COUNT,PLT 181 K/mm3 (150-400); RED BLOOD CELL COUNT 4.41 M/mm3 (4.52-5.90); WHITE BLOOD CELL COUNT,WBC 10.75 K/mm3 (3.9-11.3)
[2023-10-26 06:12] LABS: A/G RATIO 0.7 (1-2); ALBUMIN 2.7 g/dl (3.4-5.0); ANION GAP 8.7 (5-15); BILIRUBIN TOTAL 1.4 mg/dL (0.2-1.0); CREATININE 1.4 mg/dL (0.7-1.3); EST CRCL DRUG DOSING (CG) 57.9 mL/min; MAGNESIUM 2.1 mg/dL (1.8-2.4); POTASSIUM,K 3.7 mEq/L (3.5-5.1); PROTEIN TOTAL,TP 6.7 g/dl (6.4-8.2)
[2023-10-27 05:34] LABS: BASOPHILS PERCENT AUTO 0.3 % (0.0-1.0); EOSINOPHILS ABSOLUTE AUTO 0.2 K/mm3 (0.0-0.4); EOSINOPHILS PERCENT AUTO 1.9 % (0.0-6.0); HEMATOCRIT 42.1 % (42.0-52.0); HEMOGLOBIN 13.1 gm/dl (14.0-18.0); IMMATURE GRAN ABSOLUTE AUTO 0.03 K/mm3 (0.00-0.05); IMMATURE GRAN PERCENT AUTO 0.3 % (0.0-0.4); LYMPHOCYTES PERCENT AUTO 9.1 % (24.0-44.0); MEAN CORPUSCULAR HEMOGLOBIN 29.9 pg (28.0-32.0); MEAN CORPUSCULAR HGB CONC 31.1 g/dl (32.0-36.0); MEAN CORPUSCULAR VOLUME 96.1 fl (83.0-99.0); MEAN PLATELET VOLUME 10.5 fl (9.4-12.4); MONOCYTES ABSOLUTE AUTO 1.7 K/mm3 (0.0-0.8); MONOCYTES PERCENT AUTO 15.6 % (0.0-8.0); NEUTROPHILS ABSOLUTE AUTO 7.9 K/mm3 (1.8-7.7); NEUTROPHILS PERCENT AUTO 72.8 % (41.0-71.0); PLATELET COUNT,PLT 200 K/mm3 (150-400); RED BLOOD CELL COUNT 4.38 M/mm3 (4.52-5.90); WHITE BLOOD CELL COUNT,WBC 10.86 K/mm3 (3.9-11.3)
[2023-10-27 05:52] LABS: A/G RATIO 0.7 (1-2); ALBUMIN 2.8 g/dl (3.4-5.0); ANION GAP 9.9 (5-15); BILIRUBIN TOTAL 1.1 mg/dL (0.2-1.0); BUN/CREATININE RATIO 14.7 (14-18); CALCIUM 9.1 mg/dL (8.5-10.1); CREATININE 1.5 mg/dL (0.7-1.3); EST CRCL DRUG DOSING (CG) 54.04 mL/min; POTASSIUM,K 3.9 mEq/L (3.5-5.1); PROTEIN TOTAL,TP 6.8 g/dl (6.4-8.2)
[2023-10-27 06:07] LABS: SLIDE REVIEW ABNORMAL SMEAR
[2023-10-27] MEDS: Albuterol/Ipratropium 3.0-0.5 MG/3 ML Neb Soln NEB SCH (08:29)
[2023-10-27] MEDS: Bumetanide 1 MG Tab PO SCH (20:13)
[2023-10-28 05:09] LABS: HEMATOCRIT 42.5 % (42.0-52.0); HEMOGLOBIN 13.5 gm/dl (14.0-18.0); MEAN CORPUSCULAR HEMOGLOBIN 29.9 pg (28.0-32.0); MEAN CORPUSCULAR HGB CONC 31.8 g/dl (32.0-36.0); MEAN CORPUSCULAR VOLUME 94.2 fl (83.0-99.0); MEAN PLATELET VOLUME 10.6 fl (9.4-12.4); PLATELET COUNT,PLT 209 K/mm3 (150-400); RED BLOOD CELL COUNT 4.51 M/mm3 (4.52-5.90); WHITE BLOOD CELL COUNT,WBC 8.54 K/mm3 (3.9-11.3)
[2023-10-28 05:36] LABS: A/G RATIO 0.6 (1-2); ALBUMIN 2.8 g/dl (3.4-5.0); ANION GAP 10.9 (5-15); BUN/CREATININE RATIO 15.3 (14-18); CALCIUM 9.3 mg/dL (8.5-10.1); CREATININE 1.5 mg/dL (0.7-1.3); EST CRCL DRUG DOSING (CG) 54.04 mL/min; POTASSIUM,K 3.9 mEq/L (3.5-5.1); PROTEIN TOTAL,TP 7.3 g/dl (6.4-8.2)
[2023-10-28 12:20] VITALS: BP 142/63
[2023-10-28 13:45] VITALS: PULSE 86
== END 2023-10-28 14:10 | disposition home or self-care (01) | DRG 193 ==
LOC: JD.ED 14:10 → JD.MS 16:43
PROVIDERS: ADMIT Internal Medicine; ATTEND Internal Medicine
DX: J18.9 Pneumonia, unspecified organism (principal); I50.9 Heart failure, unspecified; J44.9 Chronic obstructive pulmonary disease, unspecified; I50.43 Acute on chronic combined systolic (congestive) and diastolic (congestive) heart failure; J96.21 Acute and chronic respiratory failure with hypoxia; E66.9 Obesity, unspecified; Z68.43 Body mass index [BMI] 50.0-59.9, adult; J44.0 Chronic obstructive pulmonary disease with (acute) lower respiratory infection; I11.0 Hypertensive heart disease with heart failure; I48.91 Unspecified atrial fibrillation; K21.9 Gastro-esophageal reflux disease without esophagitis; G47.30 Sleep apnea, unspecified; F32.A Depression, unspecified; E66.01 Morbid (severe) obesity due to excess calories; G62.9 Polyneuropathy, unspecified; E78.00 Pure hypercholesterolemia, unspecified; Z97.3 Presence of spectacles and contact lenses; Z86.16 Personal history of COVID-19; Z79.01 Long term (current) use of anticoagulants; Z90.49 Acquired absence of other specified parts of digestive tract; Z86.010 Personal history of colon polyps; Z87.891 Personal history of nicotine dependence; Z79.899 Other long term (current) drug therapy
CPT/HCPCS: 0241U; 36415; 71045; 71045-26; 71046; 71046-26; 71275; 71275-26; 80053; 83615; 83735; 83880; 84484; 85025; 85027; 85379; 93005; 93010; 93307; 94640; 94667; 94668; 94761; 96374; 99223; 99232; 99285; 99285-25; A9270-GY; J0696; J1940; J3475; J3490; J7620-GY; Q9967

== ENCOUNTER 2024-01-06 15:13 | Emergency (ER) | payer MEDICARE, OTHER ==
[2024-01-06 16:51] LABS: BASOPHILS PERCENT AUTO 0.1 % (0.0-1.0); EOSINOPHILS ABSOLUTE AUTO 0.2 K/mm3 (0.0-0.4); EOSINOPHILS PERCENT AUTO 3.3 % (0.0-6.0); HEMATOCRIT 41.5 % (42.0-52.0); HEMOGLOBIN 12.5 gm/dl (14.0-18.0); IMMATURE GRAN ABSOLUTE AUTO 0.02 K/mm3 (0.00-0.05); IMMATURE GRAN PERCENT AUTO 0.3 % (0.0-0.4); LYMPHOCYTES ABSOLUTE AUTO 1.1 K/mm3 (1.0-4.8); LYMPHOCYTES PERCENT AUTO 15.2 % (24.0-44.0); MEAN CORPUSCULAR HEMOGLOBIN 29.3 pg (28.0-32.0); MEAN CORPUSCULAR HGB CONC 30.1 g/dl (32.0-36.0); MEAN PLATELET VOLUME 10.5 fl (9.4-12.4); MONOCYTES ABSOLUTE AUTO 0.8 K/mm3 (0.0-0.8); MONOCYTES PERCENT AUTO 12.2 % (0.0-8.0); NEUTROPHILS ABSOLUTE AUTO 4.8 K/mm3 (1.8-7.7); NEUTROPHILS PERCENT AUTO 68.9 % (41.0-71.0); PLATELET COUNT,PLT 176 K/mm3 (150-400); RED BLOOD CELL COUNT 4.27 M/mm3 (4.52-5.90); WHITE BLOOD CELL COUNT,WBC 6.91 K/mm3 (3.9-11.3)
[2024-01-06 17:00] LABS: MEAN CORPUSCULAR VOLUME 97.2 fl (83.0-99.0)
[2024-01-06 17:12] LABS: ALBUMIN 3.5 g/dl (3.4-5.0); ANION GAP 8.9 (5-15); BUN/CREATININE RATIO 15.7 (14-18); C-REACTIVE PROTEIN 2.68 mg/dL (<0.30); CALCIUM 8.8 mg/dL (8.5-10.1); CREATININE 1.4 mg/dL (0.7-1.3); EST CRCL DRUG DOSING (CG) 57.08 mL/min; POTASSIUM,K 3.9 mEq/L (3.5-5.1); PROTEIN TOTAL,TP 7.1 g/dl (6.4-8.2)
[2024-01-06 17:17] LABS: LACTIC ACID 1.6 mmol/L (0.4-2.0)
[2024-01-06] MEDS: cefTRIAXone 1 GM in Sodium Chloride 0.9% 100 ML IV ONE (18:44)
[2024-01-06 19:47] VITALS: BP 138/78; PULSE 80
== END 2024-01-06 19:44 | disposition home or self-care (01) ==
LOC: JD.ED 15:13
DX: M70.22 Olecranon bursitis, left elbow (principal); L03.116 Cellulitis of left lower limb; N18.9 Chronic kidney disease, unspecified; I11.0 Hypertensive heart disease with heart failure; I50.9 Heart failure, unspecified; E66.9 Obesity, unspecified; Z79.899 Other long term (current) drug therapy; Z86.16 Personal history of COVID-19; Z90.49 Acquired absence of other specified parts of digestive tract; Z87.891 Personal history of nicotine dependence; Z68.43 Body mass index [BMI] 50.0-59.9, adult
CPT/HCPCS: 36415; 73610; 80053; 83605; 85025; 86140; 96365; 99283; J0696; J3490; 99284

== ENCOUNTER 2024-06-17 12:34 | Emergency (ER) | payer MEDICARE, OTHER ==
[2024-06-17 13:33] LABS: BASOPHILS PERCENT AUTO 0.2 % (0.0-1.0); EOSINOPHILS ABSOLUTE AUTO 0.2 K/mm3 (0.0-0.4); EOSINOPHILS PERCENT AUTO 2.9 % (0.0-6.0); HEMATOCRIT 38.5 % (42.0-52.0); IMMATURE GRAN ABSOLUTE AUTO 0.03 K/mm3 (0.00-0.05); IMMATURE GRAN PERCENT AUTO 0.5 % (0.0-0.4); LYMPHOCYTES ABSOLUTE AUTO 0.9 K/mm3 (1.0-4.8); LYMPHOCYTES PERCENT AUTO 14.8 % (24.0-44.0); MEAN CORPUSCULAR HEMOGLOBIN 28.3 pg (28.0-32.0); MEAN CORPUSCULAR HGB CONC 29.4 g/dl (32.0-36.0); MEAN CORPUSCULAR VOLUME 96.3 fl (83.0-99.0); MONOCYTES ABSOLUTE AUTO 0.8 K/mm3 (0.0-0.8); MONOCYTES PERCENT AUTO 12.8 % (0.0-8.0); NEUTROPHILS ABSOLUTE AUTO 4.1 K/mm3 (1.8-7.7); NEUTROPHILS PERCENT AUTO 68.8 % (41.0-71.0); PLATELET COUNT,PLT 157 K/mm3 (150-400); WHITE BLOOD CELL COUNT,WBC 5.88 K/mm3 (3.9-11.3)
[2024-06-17 13:35] LABS: HEMOGLOBIN 11.3 gm/dl (14.0-18.0)
[2024-06-17 13:49] LABS: INR 1.19; PROTHROMBIN TIME 12.5 SECONDS (9.7-12.0)
[2024-06-17 13:50] LABS: PTT,PARTIAL THROMBOPLSTIN TIME 29.3 SECONDS (21.7-31.4)
[2024-06-17 13:54] LABS: LACTIC ACID 0.9 mmol/L (0.4-2.0)
[2024-06-17 14:00] LABS: ALBUMIN 3.6 g/dl (3.4-5.0); ANION GAP 8.8 (5-15); BILIRUBIN TOTAL 1.2 mg/dL (0.2-1.0); BUN/CREATININE RATIO 13.1 (14-18); CALCIUM 9.1 mg/dL (8.5-10.1); CREATININE 1.3 mg/dL (0.7-1.3); EST CRCL DRUG DOSING (CG) 61.47 mL/min; POTASSIUM,K 3.8 mEq/L (3.5-5.1); PROTEIN TOTAL,TP 7.3 g/dl (6.4-8.2)
[2024-06-17 17:21] VITALS: BP 144/73; PULSE 69
== END 2024-06-17 16:00 | disposition home or self-care (01) ==
LOC: JD.ED 12:34
DX: R06.02 Shortness of breath (principal); I11.0 Hypertensive heart disease with heart failure; I50.9 Heart failure, unspecified; I48.91 Unspecified atrial fibrillation; J44.9 Chronic obstructive pulmonary disease, unspecified; K21.9 Gastro-esophageal reflux disease without esophagitis; E66.9 Obesity, unspecified; Z86.16 Personal history of COVID-19; Z90.49 Acquired absence of other specified parts of digestive tract; Z87.891 Personal history of nicotine dependence; Z79.899 Other long term (current) drug therapy; Z79.01 Long term (current) use of anticoagulants; Z79.51 Long term (current) use of inhaled steroids; Z68.42 Body mass index [BMI] 45.0-49.9, adult
CPT/HCPCS: 36415; 71045; 71045-26; 80053; 83605; 83880; 84484; 85025; 85610; 85730; 93005; 99285